=== PATIENT | female | born 1970 | race Caucasian/White ===

== ENCOUNTER → 2016-08-21 | Outpatient (CLI) | payer MEDICARE ==
--- NOTE | 2016-08-21 17:35 | US ---
EXAMINATION TYPE: US kidneys/renal and bladder DATE OF EXAM: 08/21/2016 5:12 PM COMPARISON: yes in PACS CLINICAL HISTORY: laceration of rt ureter during rectal prolapses surgery a couple months ago, sten p ut in rt kidney temporarily , stent removed 1 month ago EXAM MEASUREMENTS: Right Kidney: 10.6 x 3.8 x 4.3 cm Left Kidney: 10.4 x 4.1 x 4.3 cm Post Void Residual Volume: 13.9 ml ANATOMY: TECHNOLOGIST IMPRESSION: Right Kidney: prominent renal pelvis no hydro seen Left Kidney: no hydro seen Bladder: wnl rt complex mass 4.5 x 6.6 x 3.9 cm, origin undetermined on post void looks the same Bilateral Jets seen: left seen Normal Post Void Residual: yes There is no evidence for hydronephrosis at this point in time. No nephrolithiasis is seen. No elian s are identified. The urinary bladder is anechoic. Bilateral ureteral jets are seen. IMPRESSION: No renal stone or obstruction seen. There is a predominantly cystic mass in the pelvis on the right s sedrick of the urinary bladder. Margins are somewhat irregular with some thick internal septation. This c ould be arising from the right ovary or related to urinoma in this patient with a history of a previo us stent. We could not demonstrate a ureteral jet in the urinary bladder on the right side. Postvoid estimated bladder volume is 14 mL. Follow-up is recommended. Normal Values: Renal Length = 9 - 12cm Bladder Wall: < 0.3cm
== END | disposition home or self-care (01) ==
LOC: RADUSWWP 16:32
PROVIDERS: ATTEND Urology
DX: N94.89 Other specified conditions associated with female genital organs and menstrual cycle (principal); S37.13XA Laceration of ureter, initial encounter
CPT/HCPCS: 76770

== ENCOUNTER → 2016-09-03 | Outpatient (CLI) | payer MEDICARE ==
--- NOTE | 2016-09-05 10:40 | MM ---
Reason for exam: clinical finding. Last mammogram was performed 1 year and 10 months ago. History: Patient has history of other cancer at age 31 and is nulliparous. Indicated problem(s): lump or thickening in the left breast. Physical Findings: Nurse Summary: 1.5cm nodule in the left breast at 12 o'clock (nurse mm). MG Diagnostic Mammo w CAD PILI Bilateral CC and MLO view(s) were taken. Prior study comparison: October 19, 2014, right breast MG work up mamm w CAD RT. October 06, 2014, bilateral MG screening mammo w CAD. The breast tissue is extremely dense which could obscure a lesion on mammography. On left MLO view there is increased asymmetric parenchyma tissue. This finding is changed when compared with previous exams. These results were verbally communicated with the patient and result sheet given to the patient on 09/03/16. ASSESSMENT: Suspicious, BI-RAD 4 RECOMMENDATION: Surgical consultation and ultrasound core biopsy of the left breast. Called with mammographic findings and has scheduled an appointment for the patient with Dr. Borjas. PRELIMINARY REPORT CALLED AND FAXED TO DR. BORJAS ON 09/05/16 AT 300/TP.
--- NOTE | 2016-09-05 10:41 | USB ---
Reason for exam: clinical finding. History: Patient has history of other cancer at age 31 and is nulliparous. Indicated problem(s): lump or thickening in the left breast. US Breast LT Left breast ultrasound including all four quadrants, the retroareolar region and axilla demonstrates a 1.1 x 0.7 x 0.3cm oval, solid, hyperechoic lesion at 12 o'clock and a 0.8 x 0.8 x 0.4cm irregular, solid, hypoechoic lesion at 1 o'clock for which a biopsy is recommended. These results were verbally communicated with the patient and result sheet given to the patient on 09/03/16. ASSESSMENT: Suspicious, BI-RAD 4 RECOMMENDATION: Surgical consultation and ultrasound core biopsy of the left breast. Called with mammographic findings and has scheduled an appointment for the patient with Dr. Borjas. PRELIMINARY REPORT CALLED AND FAXED TO DR. BORJAS ON 09/05/16 AT 300/TP.
== END | disposition home or self-care (01) ==
LOC: RADMAMWWP 14:59
PROVIDERS: ATTEND Family Medicine
DX: N63 Unspecified lump in breast (principal)
CPT/HCPCS: 76641; G0204

== ENCOUNTER → 2016-09-14 | Day surgery (SDC) | payer MEDICARE ==
[~2016-09-14] MED LIST: ALPRAZolam 0.25 MG TAB ONE; BACITRACIN OINT 1 EACH PACKET TOPICAL ONE; LIDOCAINE 1% INJ 10MG/ML (20 ML MDV) ONE; LIDOCAINE 1%-EPI 1:100,000 20 ML VIAL ONE; SODIUM BICARB 4% 5 ML VIAL (0.48 MEQ/ML) ONE
--- NOTE | 2016-09-14 12:22 | USB ---
EXAMINATION TYPE: US biopsy breast VAD LT, MG diagnostic mammo LT wo CAD DATE OF EXAM: 09/14/2016 11:53 AM CLINICAL HISTORY: Abnormal Mammogram R92.8. Abnormal ultrasound. TECHNIQUE: Ultrasound guided core biopsy of left breast with clip placement follow-up two-view mammogram. COMPARISON: Prior mammogram and ultrasound September 03, 2016 and older studies FINDINGS: The procedure of ultrasound guided core biopsy was explained to the patient. Benefits, alternatives, and risks were discussed. An informed consent was then obtained. The patient was placed in supine positioning for imaging and for the procedure. Preprocedure imaging redemonstrated heterogeneous slightly lobulated hypoechoic 8 x 5 mm lesion 1:00 position in left breast zone B/C with some shadowing. The overlying skin was prepped and draped in usual sterile fashion. Lidocaine buffered with bicarbonate was used as anesthetic into the skin and subcutaneous tissue up to area of concern in the left breast. Lidocaine with epinephrine is used as anesthetic into the deeper tissue. Under ultrasound guidance, a 12-gauge vacuum assisted biopsy gun device was used to obtain 4 core samples. Following this, a biopsy clip was left in lesion. The patient tolerated the procedure well without any immediate complication. The patient was kept in the radiology department for short stay after the procedure and then discharged home in stable condition. Postprocedure mammogram shows successful deployment of the clip. IMPRESSION: Successful, uncomplicated ultrasound guided core biopsy of area of concern in the left breast, full pathology results to follow. Intermediate index of suspicion noted at time of procedure. Pathology Results: Benign BREAST, LEFT, CORE BIOPSY: FIBROCYSTIC CHANGES INCLUDING SCLEROSING ADENOSIS AND FIBROSIS. Recommendation Follow up ultrasound of the left breast in 6 months. OLAMIDE
== END ==
LOC: RADPROWWP 10:16 → EDSTATUS 11:30
PROVIDERS: ATTEND Surgery
DX: N60.12 Diffuse cystic mastopathy of left breast (principal); N60.22 Fibroadenosis of left breast; R92.8 Other abnormal and inconclusive findings on diagnostic imaging of breast
CPT/HCPCS: 88305; 19083; G0206; A4648; J2001

== ENCOUNTER → 2017-03-25 | Outpatient (CLI) | payer MEDICARE ==
--- NOTE | 2017-03-25 14:48 | USB ---
EXAMINATION TYPE: US breast complete LT DATE OF EXAM: 03/25/2017 COMPARISON: 09/03/2016 and exams dating back to 10/19/2014. CLINICAL HISTORY: R92.8 Abnormal Mammo. Complete left breast ultrasound was performed including the retroareolar and axillary regions. The pr eviously biopsied mass at the 1:00 position measuring 0.5 x 0.5 x 0.5 cm is not enlarged in compariso n to the prior exams and contains a biopsy marker clip. No new suspicious findings are appreciated. IMPRESSION: BI-RADS 2- Sonographic stability of the previously biopsied pathologically proven area of fibrocystic change including sclerosing adenosis and fibrosis. The patient may return to annual scre ening mammography.
--- NOTE | 2017-03-26 07:52 | MM ---
Reason for exam: follow-up at short interval from prior study. Last mammogram was performed 6 months ago. History: Patient has history of other cancer at age 31 and is nulliparous. Benign US biopsy breast VAD LT of the left breast, September 14, 2016. Physical Findings: Nurse did not find any significant physical abnormalities on exam. MG 3D Diag Mammo W/Cad PILI Bilateral CC and MLO view(s) were taken. Prior study comparison: September 14, 2016, left breast MG diagnostic mammo LT wo CAD. September 03, 2016, bilateral MG diagnostic mammo w CAD PILI. The breast tissue is extremely dense which could obscure a lesion on mammography. Finding #1: There are typically benign, stable round and oval masses in both breasts relating to waxing an waning cysts. Finding #2: There are few typically benign calcifications in both breasts. Left upper outer quadrant biopsy marker. No significant changes in finding since September 14, 2016 and September 03, 2016. These results were verbally communicated with the patient and result sheet given to the patient on 03/25/17. ASSESSMENT: Benign, BI-RAD 2 RECOMMENDATION: Routine screening mammogram of both breasts in 1 year.
== END | disposition home or self-care (01) ==
LOC: RADMAMWWP 13:30
PROVIDERS: ATTEND Surgery
DX: R92.8 Other abnormal and inconclusive findings on diagnostic imaging of breast (principal)
CPT/HCPCS: 76641; G0204; G0279

== ENCOUNTER → 2017-04-29 | Outpatient (CLI) | payer MEDICARE | END | disposition home or self-care (01) | LOC: LABWHC1 14:08 | PROVIDERS: ATTEND Psychiatry & Neurology Psychiatry | DX: F25.0 Schizoaffective disorder, bipolar type (principal) | CPT/HCPCS: 36415; 84146 ==

== ENCOUNTER → 2017-09-03 | Outpatient (CLI) | payer MEDICARE ==
[2017-09-03 13:58] LABS: T4, Free (Free Thyroxine) 0.94 ng/dL (0.78-2.19)
== END | disposition home or self-care (01) ==
LOC: LABWHC1 12:35
PROVIDERS: ATTEND Family Medicine
DX: R94.7 Abnormal results of other endocrine function studies (principal)
CPT/HCPCS: 36415; 84439; 84443

== ENCOUNTER → 2017-09-18 | Outpatient (CLI) | payer MEDICARE ==
--- NOTE | 2017-09-18 16:34 | US ---
EXAMINATION TYPE: US kidneys/renal and bladder DATE OF EXAM: 09/18/2017 COMPARISON: Prior renal ultrasound August 21, 2016 CLINICAL HISTORY: S37.19XD Injury of Ureter. LAST FALL DURING A RECTOCELE REPAIR SURGERY, RT URETER W CUT AND REQUIRED REPAIR. EXAM MEASUREMENTS: Right Kidney: 10.5 X 3.9 X 5.2 cm Left Kidney: 10.2 X 5.4 X 4.8 cm Right Kidney: WNL Left Kidney: WNL Bladder: WNL Bilateral Jets seen: BILATERAL JETS SEEN, THE RIGHT JET APPEARS TO COME FROM MORE LATERAL POSITION INCIDENTAL FINDINGS OF FIBROID UTERUS There is no evidence for hydronephrosis at this point in time. No nephrolithiasis is seen. No elian s are identified. The urinary bladder is anechoic. Bilateral ureteral jets are seen. IMPRESSION: No hydronephrosis is seen bilaterally on current study. Fibroid uterus incidentally noted.
== END | disposition home or self-care (01) ==
LOC: RADUSWWP 15:16
PROVIDERS: ATTEND Family Medicine
DX: D25.9 Leiomyoma of uterus, unspecified (principal); Z00.00 Encounter for general adult medical examination without abnormal findings
CPT/HCPCS: 76770

== ENCOUNTER → 2017-12-05 | Outpatient (CLI) | payer MEDICARE ==
[2017-12-05 10:33] LABS: Cholesterol 226 mg/dL (<200); Glucose 84 mg/dL (74-99)
[2017-12-05 11:06] LABS: HDL Cholesterol 45 mg/dL (40-60); LDL Cholesterol,Calculated 142 mg/dL (0-99); Triglycerides 194 mg/dL (<150)
[2017-12-05 18:51] LABS: Hemoglobin A1C 5.5 % (4.0-6.0)
== END | disposition home or self-care (01) ==
LOC: LABWHC1 09:57
PROVIDERS: ATTEND Psychiatry & Neurology Psychiatry
DX: F25.0 Schizoaffective disorder, bipolar type (principal)
CPT/HCPCS: 36415; 80061; 82947; 83036; 84146

== ENCOUNTER → 2018-01-15 | Outpatient (CLI) | payer MEDICARE ==
--- NOTE | 2018-01-15 14:17 | XR ---
EXAMINATION TYPE: XR wrist complete RT DATE OF EXAM: 01/15/2018 CLINICAL HISTORY: pain TECHNIQUE: Frontal, lateral and oblique images of the right wrist are obtained. COMPARISON: None. FINDINGS: There is no acute fracture/dislocation evident. The joint spaces appear within normal limits. The o verlying soft tissue appears unremarkable. IMPRESSION: There is no acute fracture or dislocation seen. ICD 10 NO FRACTURE, INITIAL EVALUATION
== END | disposition home or self-care (01) ==
LOC: RADXRMAIN 14:00
PROVIDERS: ATTEND Family Medicine
DX: M25.531 Pain in right wrist (principal)

== ENCOUNTER → 2018-04-15 | Outpatient (CLI) | payer MEDICARE ==
--- NOTE | 2018-04-17 14:15 | MM ---
Reason for exam: screening (asymptomatic). Last mammogram was performed 1 year and 1 month ago. History: Patient has history of other cancer at age 31 and is nulliparous. Benign US biopsy breast VAD LT of the left breast, September 14, 2016. Physical Findings: A clinical breast exam by your physician is recommended on an annual basis and results should be correlated with mammographic findings. MG 3D Screening Mammo W/Cad Bilateral CC and MLO view(s) were taken. Prior study comparison: March 25, 2017, bilateral MG 3d diag mammo w/cad PILI. September 14, 2016, left breast MG diagnostic mammo LT wo CAD. The breast tissue is heterogeneously dense. This may lower the sensitivity of mammography. Previous mammotome biopsy in the left breast. No significant changes when compared with prior studies. ASSESSMENT: Benign, BI-RAD 2 RECOMMENDATION: Routine screening mammogram of both breasts in 1 year.
== END | disposition home or self-care (01) ==
LOC: RADMAMWWP 11:24
PROVIDERS: ATTEND Family Medicine
DX: Z12.31 Encounter for screening mammogram for malignant neoplasm of breast (principal)
CPT/HCPCS: 77063; 77067

== ENCOUNTER → 2018-07-16 | Outpatient (CLI) | payer MEDICARE ==
[2018-07-16 15:56] LABS: LDL Cholesterol,Calculated 127.6 mg/dL (0.0-131.0); VLDL Calculation 29.4 mg/dL (5.00-40.00)
[2018-07-16 17:41] LABS: Hemoglobin A1C 5.6 % (4.0-6.0)
== END | disposition home or self-care (01) ==
LOC: LABWHC1 10:08
PROVIDERS: ATTEND Psychiatry & Neurology Psychiatry
DX: F25.0 Schizoaffective disorder, bipolar type (principal)
CPT/HCPCS: 36415; 80061; 82947; 83036; 84146

== ENCOUNTER → 2018-09-08 | Outpatient (CLI) | payer MEDICARE ==
[2018-09-08 12:49] LABS: Basophils # (A) 0.1 k/uL (0-0.2); Basophils % (A) 1 %; Eosinophils # (A) 0.2 k/uL (0-0.7); Eosinophils % (A) 3 %; HCT 41.3 % (34.0-46.0); HGB 13.3 gm/dL (11.4-16.0); Lymphocytes # (A) 1.7 k/uL (1.0-4.8); Lymphocytes % (A) 26 %; MCH 28.6 pg (25.0-35.0); MCHC 32.1 g/dL (31.0-37.0); Mean Platelet Volume 7.1; Monocytes # (A) 0.3 k/uL (0-1.0); Monocytes % (A) 5 %; Neutrophils % (A) 61 %; Platelet Count 325 k/uL (150-450); RBC 4.64 m/uL (3.80-5.40); WBC 6.5 k/uL (3.8-10.6)
[2018-09-08 17:56] LABS: Albumin 4.4 g/dL (3.80-4.90); Calcium 9.6 mg/dL (8.7-10.3); Globulin 2.2 g/dL (1.6-3.3); LDL Cholesterol,Calculated 106.8 mg/dL (0.0-131.0); Magnesium 1.6 mg/dL (1.5-2.4); Potassium 4.3 mmol/L (3.5-5.5); Total Bilirubin 0.3 mg/dL (0.3-1.2); Total Protein 6.6 g/dL (6.2-8.2); VLDL Calculation 64.2 mg/dL (5.00-40.00)
== END | disposition home or self-care (01) ==
LOC: LABWHC1 10:30
PROVIDERS: ATTEND Family Medicine
DX: D72.829 Elevated white blood cell count, unspecified (principal); R94.7 Abnormal results of other endocrine function studies; Z13.29 Encounter for screening for other suspected endocrine disorder; Z13.6 Encounter for screening for cardiovascular disorders
CPT/HCPCS: 36415; 80053; 80061; 83735; 84146; 84443; 85025

== ENCOUNTER → 2018-11-19 | Outpatient (CLI) | payer MEDICARE ==
--- NOTE | 2018-11-19 14:06 | XR ---
EXAMINATION TYPE: XR foot complete LT DATE OF EXAM: 11/19/2018 CLINICAL HISTORY: Pain for one month in the fourth toe TECHNIQUE: Frontal, lateral, and oblique images of the left foot are obtained. COMPARISON: None FINDINGS: There is no acute fracture/dislocation evident in the left foot. Some flexion in distal fo urth and fifth toes is present. Moderate soft tissue swelling over fourth toe is seen. IMPRESSION: Moderate diffuse soft tissue swelling fourth toe without fracture or suspicious osseous l esion.
== END | disposition home or self-care (01) ==
LOC: RADXRMAIN 13:32
PROVIDERS: ATTEND Family Medicine
DX: M79.89 Other specified soft tissue disorders (principal)

== ENCOUNTER → 2019-03-03 | Outpatient (CLI) | payer MEDICARE ==
[2019-03-03 16:44] LABS: Hemoglobin A1C 5.8 % (4.0-6.0)
== END | disposition home or self-care (01) ==
LOC: LABWHC1 09:57
PROVIDERS: ATTEND Psychiatry & Neurology Psychiatry
DX: F25.0 Schizoaffective disorder, bipolar type (principal)
CPT/HCPCS: 36415; 80061; 82947; 83036; 84450; 84460

== ENCOUNTER 2019-04-22 08:09 | Day surgery (SDC) | payer MEDICARE ==
[2019-04-20 11:13] VITALS: BMI 31.4
[~2019-04-22 08:09] MED LIST changes: -ALPRAZolam 0.25 MG TAB ONE; -BACITRACIN OINT 1 EACH PACKET TOPICAL ONE; +LACTATED RINGERS 1,000 ML IV SCH; +LIDOCAINE 1% 20 ML VIAL (10MG/ML) FOR IV START INTRADERMA PRN; -LIDOCAINE 1% INJ 10MG/ML (20 ML MDV) ONE; -LIDOCAINE 1%-EPI 1:100,000 20 ML VIAL ONE; -SODIUM BICARB 4% 5 ML VIAL (0.48 MEQ/ML) ONE
[2019-04-22 08:41] VITALS: PULSE 94; RESP 16; TEMP 97
[2019-04-22 08:48] LABS: Glucose,Whole Blood 94 mg/dL (75-99)
[2019-04-22] MEDS ORDERED: PROPOFOL 10 MG/ML 20 ML VIAL IV ONE (09:07)
--- NOTE | 2019-04-22 09:10 | P.GSHP ---
History of Present Illness H&P Date: 04/22/19 Chief Complaint: GERD This a 48-year-old female referred from Yelena Ford. Patient had issues with GERD. Patient resents today for EGD. Past Medical History Past Medical History: COPD, GERD/Reflux, Skin Disorder Additional Past Medical History / Comment(s): hiatal hernia, PSORIATIC ARTHRITIS, psoriasis, hypoglycemia, rectal prolapse History of Any Multi-Drug Resistant Organisms: None Reported Past Surgical History: Hernia Repair, Tonsillectomy Additional Past Surgical History / Comment(s): excision of moles, urethral stent. RECTAL PROLAPSE SX. COLONOSCOPY Past Anesthesia/Blood Transfusion Reactions: No Reported Reaction Smoking Status: Former smoker - Past Family History Mother Family Medical History: No Reported History Medications and Allergies Home Medications Medication Instructions Recorded Confirmed Type Multivitamins, Thera [Multivitamin 1 tab PO DAILY 07/18/17 04/22/19 History (formulary)] Venlafaxine HCl ER [Effexor XR] 75 mg PO DAILY #14 cap.er.24h 07/23/17 04/22/19 Rx Ziprasidone [Geodon] 40 mg PO 0800,1900 #28 cap 07/23/17 04/22/19 Rx Omeprazole [PriLOSEC] 20 mg PO AC-BRKFST 04/20/19 04/22/19 History Secukinumab [Cosentyx Pen] 150 mg SQ Q120D 04/20/19 04/22/19 History Allergies Allergy/AdvReac Type Severity Reaction Status Date / Time No Known Allergies Allergy Verified 04/22/19 08:34 Surgical - Exam Vital Signs Temp Pulse Resp BP Pulse Ox 97 F L 94 16 110/74 94 L 04/22/19 08:40 04/22/19 08:40 04/22/19 08:40 04/22/19 08:40 04/22/19 08:40 - General well developed, well nourished, no distress - Eyes PERRL - ENT normal pinna - Neck no masses - Respiratory normal expansion, normal respiratory effort - Cardiovascular Rhythm: regular - Abdomen Abdomen: soft, non tender Assessment and Plan Assessment: GERD. We'll perform EGD.
--- NOTE | 2019-04-22 09:19 | P.OP ---
Date of Procedure: 04/22/19 Preoperative Diagnosis: GERD Postoperative Diagnosis: Large hiatal hernia Severe Esophagitis Procedure(s) Performed: EGD Anesthesia: MAC Surgeon: Tyrel Tadeo Pathology: other (Antrum, esophagus) Condition: stable Disposition: PACU Description of Procedure: The patient's placed on the endoscopy table in the lateral position. She received IV sedation. The gastroscope placed oropharynx passed in the esophagus and into the stomach. Scope was then placed through the pylorus. The first second portion of the duodenum appeared normal. Scope summer back the antrum this was mildly inflamed. A biopsies was performed. The scope was then retroflexed and the remainder of the stomach appeared normal. The patient had a large hiatal hernia. The GE junction was at 34 cm. The distal esophagus appeared inflamed. There was severe esophagitis. Linear erosions were visualized. A biopsies performed. The proximal esophagus appeared normal. Scope withdrawn for patient.
[2019-04-22 09:32] VITALS: BP 122/70
== END 2019-04-22 09:55 | disposition home or self-care (01) ==
LOC: ORWHC2ENDO 08:09
PROVIDERS: ATTEND Surgery
DX: K20.0 Eosinophilic esophagitis (principal); K29.50 Unspecified chronic gastritis without bleeding; K44.9 Diaphragmatic hernia without obstruction or gangrene; J44.9 Chronic obstructive pulmonary disease, unspecified; Z96.0 Presence of urogenital implants; L40.50 Arthropathic psoriasis, unspecified; L40.9 Psoriasis, unspecified; E16.2 Hypoglycemia, unspecified; Z87.891 Personal history of nicotine dependence; F41.9 Anxiety disorder, unspecified; F31.9 Bipolar disorder, unspecified; F20.9 Schizophrenia, unspecified; Z79.899 Other long term (current) drug therapy
CPT/HCPCS: 81025; 88305; 43239; J2704

== ENCOUNTER → 2019-04-23 | Outpatient (CLI) | payer MEDICARE ==
--- NOTE | 2019-04-24 14:11 | MM ---
Reason for exam: screening (asymptomatic). Last mammogram was performed 1 year ago. History: Patient has history of other cancer at age 31 and is nulliparous. Benign US biopsy breast VAD LT of the left breast, September 14, 2016. Took hormonal contraceptives for 12 years. Physical Findings: A clinical breast exam by your physician is recommended on an annual basis and results should be correlated with mammographic findings. MG 3D Screening Mammo W/Cad Bilateral CC and MLO view(s) were taken. Prior study comparison: April 15, 2018, bilateral MG 3d screening mammo w/cad. March 25, 2017, bilateral MG 3d diag mammo w/cad PILI. The breast tissue is heterogeneously dense. This may lower the sensitivity of mammography. No suspicious abnormality. Left biopsy marker noted. No significant changes when compared with prior studies. ASSESSMENT: Negative, BI-RAD 1 RECOMMENDATION: Routine screening mammogram of both breasts in 1 year.
== END | disposition home or self-care (01) ==
LOC: RADMAMWWP 12:42
PROVIDERS: ATTEND Family Medicine
DX: Z12.31 Encounter for screening mammogram for malignant neoplasm of breast (principal)
CPT/HCPCS: 77063; 77067

== ENCOUNTER → 2019-04-30 | Outpatient (CLI) | payer MEDICARE | END | disposition home or self-care (01) | LOC: LABPAT 15:12 | PROVIDERS: ATTEND Surgery | DX: Z01.812 Encounter for preprocedural laboratory examination (principal); K21.9 Gastro-esophageal reflux disease without esophagitis | CPT/HCPCS: 36415; 86850; 86900; 86901 ==

== ENCOUNTER 2019-05-04 08:25 | Day surgery (SDC) | payer MEDICARE ==
[2019-05-01 09:21] VITALS: BMI 31.6
[~2019-05-04 08:25] MED LIST changes: +DEXAMETHASONE SOD PHOSPHATE 10 MG/ML 1 ML VIAL IV ONE; +HEPARIN SODIUM,PORCINE 5,000 UNIT/ML 1 ML VIAL SQ ONE; -LACTATED RINGERS 1,000 ML IV SCH; +MIDAZOLAM 2 MG/2 ML VIAL IV PRN
[2019-05-04] MEDS: LACTATED RINGERS 1,000 ML IV SCH ×2 (09:00→18:51)
[2019-05-04] MEDS ORDERED: DEXAMETHASONE SOD PHOSPHATE 10 MG/ML 1 ML VIAL IV ONE (09:04)
[2019-05-04] MEDS ORDERED: ONDANSETRON 4 MG/2 ML VIAL IVP ONE (09:04)
--- NOTE | 2019-05-04 09:46 | P.GSHP ---
History of Present Illness H&P Date: 05/04/19 Chief Complaint: GERD This a 48-year-old female referred from Dr. Ford.The patient has had long- standing problems with reflux esophagitis. The patient underwent recent EGD is found have evidence of esophagitis. Patient has been well informed on the proc edure of laparoscopic Barrera fundoplication. The patient is aware the risk of the conversion to the open procedure, risk of injury to the stomach, liver and spleen. The patient is also a risk of recurrent GERD and dysphagia symptoms. The patient understands there is a postoperative diet of full liquids for 2 weeks after surgery. Past Medical History Past Medical History: COPD, GERD/Reflux, Skin Disorder Additional Past Medical History / Comment(s): hiatal hernia, PSORIATIC ARTHRITIS, psoriasis, hypoglycemia, hx rectal prolapse, "fibroid uterus", elevated liver enzymes, History of Any Multi-Drug Resistant Organisms: None Reported Past Surgical History: Breast Surgery, Tonsillectomy Additional Past Surgical History / Comment(s): excision of moles, rectocele repair(ureter severed during surgery and ureter stent placed/later removed), left breast biopsy, EGD, colonoscopy Past Anesthesia/Blood Transfusion Reactions: No Reported Reaction, Unable to Obtain Additional Past Anesthesia/Blood Transfusion Reaction / Comment(s): adopted Smoking Status: Former smoker - Past Family History Mother Family Medical History: Unable to Obtain Additional Family Medical History / Comment(s): adopted Medications and Allergies Home Medications Medication Instructions Recorded Confirmed Type Multivitamins, Thera [Multivitamin 1 tab PO DAILY 07/18/17 05/01/19 History (formulary)] Venlafaxine HCl ER [Effexor XR] 75 mg PO DAILY #14 cap.er.24h 07/23/17 05/01/19 Rx Omeprazole [PriLOSEC] 20 mg PO AC-BRKFST 04/20/19 05/01/19 History Secukinumab [Cosentyx Pen] 150 mg SQ QMONTH 04/20/19 05/04/19 History Calcium Carbonate 750 mg PO DIRECTED PRN 05/01/19 05/04/19 History Ibuprofen 600 mg PO DIRECTED PRN 05/01/19 05/01/19 History Ziprasidone [Geodon] 40 mg PO BID-W/MEALS 05/01/19 05/01/19 History Allergies Allergy/AdvReac Type Severity Reaction Status Date / Time No Known Allergies Allergy Verified 05/01/19 09:06 Surgical - Exam Vital Signs Temp Pulse Resp BP Pulse Ox 97.5 F L 78 18 107/76 94 L 05/04/19 08:41 05/04/19 08:41 05/04/19 08:41 05/04/19 08:41 05/04/19 08:41 - General well developed, well nourished, no distress - Eyes PERRL - ENT normal pinna - Neck no masses - Respiratory normal expansion - Cardiovascular Rhythm: regular - Abdomen Abdomen: soft, non tender Assessment and Plan Assessment: GERD. We'll perform laparoscopic Barrera fundal plication.
[2019-05-04] MEDS ORDERED: MIDAZOLAM 2 MG/2 ML VIAL ONE (10:01)
[2019-05-04] MEDS ORDERED: GLYCOPYRROLATE 0.2 MG/ML 2 ML VIAL ONE (10:01)
[2019-05-04] MEDS ORDERED: KETAMINE 10 MG/ML 20 ML VIAL ONE (10:01)
[2019-05-04] MEDS ORDERED: fentaNYL (PF) 50 MCG/ML 2 ML AMP ONE (10:01)
[2019-05-04] MEDS ORDERED: NEOSTIGMINE 1 MG/ML 10 ML VIAL ONE (10:01)
[2019-05-04] MEDS ORDERED: LIDOCAINE 1% INJ 10MG/ML (20 ML MDV) ONE (10:01)
[2019-05-04] MEDS ORDERED: SUCCINYLCHOLINE CHLORIDE 100 MG/5 ML SYR IV ONE (10:01)
[2019-05-04] MEDS ORDERED: ROCURONIUM BROMIDE 10 MG/ML 10 ML VIAL IV ONE (10:01)
[2019-05-04] MEDS ORDERED: PROPOFOL 10 MG/ML 20 ML VIAL IV ONE (10:01)
[2019-05-04] MEDS ORDERED: BUPIVACAINE (PF) 0.5% 30 ML VIAL SQ ONE (10:27)
[2019-05-04] MEDS ORDERED: LACTATED RINGERS 1,000 ML IV ONE (10:33)
--- NOTE | 2019-05-04 11:14 | P.OP ---
Date of Procedure: 05/04/19 Preoperative Diagnosis: GERD Postoperative Diagnosis: GERD Procedure(s) Performed: Laparoscopic Barrera fundoplication Anesthesia: ENA Surgeon: Tyrel Tadeo Pathology: none sent Condition: stable Disposition: PACU Description of Procedure: The patient was placed on the operating table in the supine position. The patient received general anesthesia. And was placed in dorsal lithotomy position. The patient was prepped and draped in the usual sterile fashion. The skin incision sites were anesthetized with 1% local Xylocaine. The skin was incised in the left periumbilical area and then using a blade less 5 mm trocar under direct visualization panel cavity was entered. After adequate ins ufflation the laparoscope was then placed into the peritoneal cavity. Next a 5 mm trochars placed in the right epigastric position. Another 5 millimeter trocar the right lateral position. Another 5 millimeter trocar in the left lateral position a 5 mm trocar is placed in the left epigastric position. And then the initial 5 mm trocar was exchanged for a 10 mm trocar. The left lateral lobe liver was retracted. The hernia was seen. The crural defect was then dissected using the Harmonic scissors device. A 360 crural dissection was performed the esophagus stomach was reduced back into the peritoneal Cavity. The crural defect was then closed using 2-0 Ethibond suture. Next the fundus of the stomach was mobilized using the [employer] [place] scissors device. and then a 58- [place] bougie dilator was placed oropharynx passed into the esophagus and stomach the fundal plication wrap was then performed by grasping the fundus posteriorly and bringing it around the esophagus and stomach fundoplication was then performed using 2-0 Ethibond suture. Care was taken that the fundal location rested over top of the intra-abdominal esophagus. There was no injury seen to the stomach or esophagus. The dilator was then withdrawn. The abdomen was irrigated there is no bleeding seen. The trochars were then withdrawn and then skin incision sites were closed using 3-0 Monocryl suture Steri-Strips are applied. Patient thought procedure well and sent to recovery room in stable condition.
[2019-05-04] MEDS ORDERED: ONDANSETRON 4 MG/2 ML VIAL IVP PRN (11:15)
[2019-05-04] MEDS: fentaNYL (PF) 50 MCG/ML 2 ML AMP IV PRN ×4 (11:20→11:49)
[2019-05-04] MEDS ORDERED: diphenhydrAMINE 50 MG/ML 1 ML VIAL IVP ONE (11:23)
[2019-05-04] MEDS ORDERED: CALCIUM CARBONATE 500 MG CHEWABLE PO PRN (13:46)
[2019-05-04] MEDS: ZIPRASIDONE 40 MG CAP PO SCH (17:20)
[2019-05-04] MEDS: HYDROmorphone 1 MG/ML 1 ML SYRINGE IVP PRN (18:04)
--- NOTE | 2019-05-04 19:24 | FL ---
SINGLE CONTRAST ESOPHAGRAM: CLINICAL HISTORY: 48 year-old female rule out leak/obstruction status post Barrera fundoplication TECHNIQUE: Single contrast exam performed with 50 ml Isovue-370 contrast. Total fluoroscopy time: 1 minute 17 seconds. Total images: 25. FINDINGS: The patient swallowed oral contrast without difficulty or delay. Esophageal peristalsis and motility are within normal limits. There are postsurgical changes of Barrera fundoplication demonstrated with a mild intermittent delay in passage of contrast into the stomach. There is no evidence of contrast extravasation to suggest leak. No postsurgical free air is seen. IMPRESSION: No evidence of leak status post Barrera plication. There is mild delay/obstruction at the surgical sit e likely secondary to postoperative swelling.
[2019-05-04] MEDS: D5-0.45% NACL WITH KCL 20MEQ/L 1,000 ML IV SCH (23:46)
--- NOTE | 2019-05-04 23:54 | P.CONS ---
History of Present Illness - Reason for Consult Consult date: 05/04/19 Medical management - Chief Complaint Laparoscopic Barrera fundoplication - History of Present Illness Patient is a 48-year-old female with a known history of COPD, psoriatic arthritis, hyperlipidemia and previous history of drug abuse and underwent rehab program was admitted to hospital for elective hiatal hernia repair. Patient recently had EGD which showed esophagitis. Currently patient is status post Barrera fundoplication. Otherwise patient denied any complaints of chest pain or shortness of breath. No nausea vomiting. Abdominal pain is controlled with medications. No headache or dizziness or lightheadedness. No chest pain or shortness of breath. Postoperatively patient was hypoxic but is currently saturating well on room air. Review of Systems Constitutional: Patient denies any fever or chills . No generalized weakness or weight loss. Abdomen: Patient denied nausea vomiting and diarrhea and abdominal pain. Cardiovascular: Patient denies any chest pain or short of breath no palpitations. Respiratory: patient denied any cough is from production. No shortness of breath Neurologic: Patient denied any numbness or tingling headache. Musculoskeletal: Patient denies any complaints of joint swelling or deformity. Skin: Negative Psychiatric: Negative Endocrine: No heat or cold intolerance. No recent weight gain. Genitourinary: No dysuria or hematuria. All other 14 point ROS negative except the above Past Medical History Past Medical History: COPD, GERD/Reflux, Skin Disorder Additional Past Medical History / Comment(s): hiatal hernia, PSORIATIC ARTHRITIS, psoriasis, hypoglycemia, hx rectal prolapse, "fibroid uterus", elevated liver enzymes, History of Any Multi-Drug Resistant Organisms: None Reported Past Surgical History: Breast Surgery, Tonsillectomy Additional Past Surgical History / Comment(s): excision of moles, rectocele repair(ureter severed during surgery and ureter stent placed/later removed), left breast biopsy, EGD, colonoscopy Past Anesthesia/Blood Transfusion Reactions: No Reported Reaction, Unable to Obtain Additional Past Anesthesia/Blood Transfusion Reaction / Comm: adopted Past Psychological History: Anxiety, Bipolar, Depression, Schizoaffective Disorder, Schizophrenia Additional Psychological History / Comment(s): UNDER CONTROL AT THIS TIME Smoking Status: Former smoker Past Alcohol Use History: None Reported Additional Past Alcohol Use History / Comment(s): smoked < 1 PPD for 29 yrs, QUIT-05/2016. previous ETOH ABUSE Past Drug Use History: None Reported Additional Drug Use History / Comment(s): HX SUBTANCE ABUSE-NONE SINCE 10/2016 - Past Family History Mother Family Medical History: Unable to Obtain Additional Family Medical History / Comment(s): adopted Medications and Allergies Home Medications Medication Instructions Recorded Confirmed Type Multivitamins, Thera [Multivitamin 1 tab PO DAILY 07/18/17 05/01/19 History (formulary)] Venlafaxine HCl ER [Effexor XR] 75 mg PO DAILY #14 cap.er.24h 07/23/17 05/01/19 Rx Omeprazole [PriLOSEC] 20 mg PO AC-BRKFST 04/20/19 05/01/19 History Secukinumab [Cosentyx Pen] 150 mg SQ QMONTH 04/20/19 05/04/19 History Calcium Carbonate 750 mg PO DIRECTED PRN 05/01/19 05/04/19 History Ibuprofen 600 mg PO DIRECTED PRN 05/01/19 05/01/19 History Ziprasidone [Geodon] 40 mg PO BID-W/MEALS 05/01/19 05/01/19 History Allergies Allergy/AdvReac Type Severity Reaction Status Date / Time No Known Allergies Allergy Verified 05/01/19 09:06 Physical Exam Vitals: Vital Signs Temp Pulse Resp BP Pulse Ox 05/04/19 13:55 97.9 F 63 16 120/81 91 L 05/04/19 12:56 70 16 114/80 97 05/04/19 12:32 65 16 118/73 96 05/04/19 12:03 72 16 102/67 97 05/04/19 11:47 76 16 98/66 98 05/04/19 11:34 72 16 110/77 16 L 05/04/19 11:15 81 16 133/80 100 05/04/19 11:09 98.8 F 105 H 16 121/69 95 05/04/19 08:41 97.5 F L 78 18 107/76 94 L Intake and Output 05/04/19 05/04/19 05/04/19 06:59 14:59 22:59 Intake Total 1775 Output Total 10 Balance 1765 Intake: IV 1650 Intake, IV Titration 125 Amount D5-0.45% NaCl with KCl 125 20Meq/l 1,000 ml @ 125 mls/hr IV .Q8H [facility] Rx#: [id number] Output: Estimated Blood Loss 10 Other: Weight 86.183 kg PHYSICAL EXAMINATION: Patient is lying in the bed comfortably, no acute distress, awake alert and oriented.. HEENT: Normocephalic. Neck is supple. Pupils reactive. Nostrils clear. Oral cavity is moist. Ears reveal no drainage. Neck reveals no JVD, carotid bruits, or thyromegaly. CHEST EXAMINATION: Trachea is central. Symmetrical expansion. Bibasilar diminished air entry. Lung jung clear to auscultation and percussion. CARDIAC: Normal S1, S2 with no gallops. No murmurs ABDOMEN: Soft. Bowel sounds sluggish. Surgical sites intact.. No organomegaly. No abdominal bruits. Extremities: reveal no edema. No clubbing or cyanosis Neurologically awake, alert, oriented x3 with well-coordinated movements. No focal deficits noted Skin: No rash or skin lesions. Psychiatric: Coperative. Nonsuicidal Musculoskeletal: No joint swelling or deformity. Normal range of motion. Assessment and Plan Assessment: Status post Barrera fundoplication due to symptomatic hiatal hernia. Postoperative day 0 GERD Psoriasis and psoriatic arthritis COPD stable History of smoking History of rectal prolapse status post repair DVT prophylaxis Obesity with BMI 31.6 Plan: Patient be continued on IV hydration and pain management, bowel regimen and incentive spirometry. Encourage ambulation and DVT prophylaxis. Continue the home medications and follow up closely. Further recommendations based on the clinical course. Thank you for your consult. Time with Patient: Greater than 30
[2019-05-05] MEDS: D5-0.45% NACL WITH KCL 20MEQ/L 1,000 ML IV SCH ×2 (01:30→05:08)
[2019-05-05] MEDS: HYDROmorphone 1 MG/ML 1 ML SYRINGE IVP PRN (01:31)
[2019-05-05 03:19] VITALS: PULSE 71; RESP 18
[2019-05-05 07:26] LABS: Basophils % (A) 0 %; Eosinophils # (A) 0.1 k/uL (0-0.7); Eosinophils % (A) 1 %; HCT 36.4 % (34.0-46.0); HGB 12.4 gm/dL (11.4-16.0); Lymphocytes # (A) 1.9 k/uL (1.0-4.8); Lymphocytes % (A) 15 %; MCH 29.6 pg (25.0-35.0); Mean Platelet Volume 7.2; Monocytes # (A) 0.6 k/uL (0-1.0); Monocytes % (A) 5 %; Neutrophils # (A) 10.2 k/uL (1.3-7.7); Neutrophils % (A) 78 %; Platelet Count 290 k/uL (150-450); RBC 4.19 m/uL (3.80-5.40); RDW 13.1 % (11.5-15.5); WBC 13.1 k/uL (3.8-10.6)
[2019-05-05] MEDS ORDERED: PANTOPRAZOLE 40 MG TABLET PO SCH (07:30)
[2019-05-05 07:43] LABS: African American GFR (CKD) >90 (>60 ml/min/1.73 sqM); Anion Gap 7 mmol/L; Blood Urea Nitrogen 11 mg/dL (7-17); Calcium 9.4 mg/dL (8.4-10.2); Carbon Dioxide 27 mmol/L (22-30); Chloride 103 mmol/L (98-107); Glucose 115 mg/dL (74-99); Potassium 4.5 mmol/L (3.5-5.1); Sodium 137 mmol/L (137-145)
[2019-05-05] MEDS: ZIPRASIDONE 40 MG CAP PO SCH (08:01)
[2019-05-05 08:39] VITALS: BP 112/75; TEMP 98.1
[2019-05-05] MEDS ORDERED: MULTIVITAMINS, THERA 1 EACH TAB PO SCH (09:00)
[2019-05-05] MEDS ORDERED: VENLAFAXINE HCL ER 75 MG CAP PO SCH (09:00)
[2019-05-05] MEDS: LACTATED RINGERS 1,000 ML IV SCH (10:01)
--- NOTE | 2019-05-05 12:51 | P.DS ---
Providers Expected date of discharge: 05/05/19 Attending physician: Tyrel Tadeo Consults: 05/04/19 11:15 Consult Physician Routine Consulting Provider: Regis Quan Consult Reason/Comments: Medical management Do you want consulting provider notified?: Yes Primary care physician: Yelena Borjas Hospital Course: 48-year-old female who underwent laparoscopic Barrera fundoplication. Patient is doing well postoperatively without any makeup occasions. Esophagram completed postoperatively negative for leak or obstruction. She is tolerating clear liquid diet. Pain is controlled on oral medications. She is stable for discharge home. Please see EMR for the hospital course details. Patient has a history of substance abuse and is requesting Tylenol only at the time of discharge. Discharge diagnosis 1. GERD, status post laparoscopic Barrera fundoplication Nurse practitioner note has been reviewed by physician. Signing provider agrees with the documented findings, assessment, and plan of care. Plan - Discharge Summary Discharge Rx Participant: Yes New Discharge Prescriptions: New Acetaminophen Tab [Tylenol Tab] 650 mg PO Q4H PRN #30 tablet PRN Reason: Pain Discontinued Omeprazole [PriLOSEC] 20 mg PO AC-BRKFST No Action Multivitamins, Thera [Multivitamin (formulary)] 1 tab PO DAILY Venlafaxine HCl ER [Effexor XR] 75 mg PO DAILY #14 cap.er.24h Secukinumab [Cosentyx Pen] 150 mg SQ QMONTH Ziprasidone [Geodon] 40 mg PO BID-W/MEALS Calcium Carbonate 750 mg PO DIRECTED PRN PRN Reason: acid reflux Ibuprofen 600 mg PO DIRECTED PRN PRN Reason: Pain Discharge Medication List Multivitamins, Thera [Multivitamin (formulary)] 1 tab PO DAILY 07/18/17 [History] Venlafaxine HCl ER [Effexor XR] 75 mg PO DAILY #14 cap.er.24h 07/23/17 [Rx] Secukinumab [Cosentyx Pen] 150 mg SQ QMONTH 04/20/19 [History] Calcium Carbonate 750 mg PO DIRECTED PRN 05/01/19 [History] Ibuprofen 600 mg PO DIRECTED PRN 05/01/19 [History] Ziprasidone [Geodon] 40 mg PO BID-W/MEALS 05/01/19 [History] Acetaminophen Tab [Tylenol Tab] 650 mg PO Q4H PRN #30 tablet 05/05/19 [Rx] Follow up Appointment(s)/Referral(s): Tyrel Tadeo MD [STAFF PHYSICIAN] - 05/19/19 1:20 pm Patient Instructions/Handouts: Fundoplication in Adults (DC) Activity/Diet/Wound Care/Special Instructions: Full liquid diet for 2 weeks. No straws or carbonated beverages No lifting over 10 pounds You may shower. No soaking or tub baths Very light activity until you are reevaluated at your follow up appointment with your surgeon
== END 2019-05-05 12:50 | disposition home or self-care (01) ==
LOC: OR 08:25 → 4SSUR 11:01 → OR 05-05 12:50
PROVIDERS: ATTEND Surgery
DX: K21.0 Gastro-esophageal reflux disease with esophagitis (principal); K44.9 Diaphragmatic hernia without obstruction or gangrene; J44.9 Chronic obstructive pulmonary disease, unspecified; L40.50 Arthropathic psoriasis, unspecified; L40.9 Psoriasis, unspecified; E78.5 Hyperlipidemia, unspecified; F41.9 Anxiety disorder, unspecified; F31.9 Bipolar disorder, unspecified; F20.9 Schizophrenia, unspecified; E66.9 Obesity, unspecified; Z79.899 Other long term (current) drug therapy; Z87.891 Personal history of nicotine dependence; Z68.31 Body mass index [BMI] 31.0-31.9, adult; Z90.89 Acquired absence of other organs; Z98.890 Other specified postprocedural states; Z87.2 Personal history of diseases of the skin and subcutaneous tissue
CPT/HCPCS: 86900; 86901; 80048; 85025; 86850; 74210; 36415; 43280; J2250; J1200; J1644; J1100; J2710; J0690; J2405; J2001; J3010; J1170 ×2; J0330; J2704; Q9967

== ENCOUNTER → 2019-08-03 | Outpatient (CLI) | payer MEDICARE ==
--- NOTE | 2019-08-03 12:18 | NM ---
EXAMINATION TYPE: NM hepatobiliary w EF DATE OF EXAM: 08/03/2019 COMPARISON: NONE HISTORY: 48-year-old female with chronic cholecystitis, epigastric and abdominal pain, nausea and vom iting. TECHNIQUE: After the intravenous administration of 4.95 mCi Tc 99m Mebrofenin hepatobiliary scintigra phy is performed. Immediate images post injection. FINDINGS: There is satisfactory initial accumulation of tracer by the liver. The gallbladder is visualized on the 90 minute delayed image. The small bowel activity is noted within 18 minutes. After 90 minutes, 1 .6 mcg CCK is injected and gallbladder ejection fraction is measured at 0 %. IMPRESSION: Delayed gallbladder filling and a 0% gallbladder ejection fraction. Differential considerations inclu de chronic cholecystitis and biliary dyskinesia.
== END | disposition home or self-care (01) ==
LOC: RADNMMAIN 06:52
PROVIDERS: ATTEND Surgery
DX: K81.1 Chronic cholecystitis (principal); K82.8 Other specified diseases of gallbladder
CPT/HCPCS: 78226; A9537; J2805

== ENCOUNTER → 2019-08-06 | Outpatient (CLI) | payer MEDICARE ==
--- NOTE | 2019-08-06 09:01 | FL ---
EXAMINATION: Cervical and Thoracic Esophagram DATE OF EXAM: 08/06/2019 CLINICAL INDICATION: 48 year-old female with GERD. Patient reports numbness and fundoplication perfor med 05/04/2019 with recurrent symptoms of acid reflux, vomiting, chest pain in June. COMPARISON: 05/04/2019 Total Fluoroscopy Time: 2 minutes 4 seconds Total images: 53 FINDINGS: The swallowing mechanism is normal and hypopharyngeal anatomy is preserved. There is some anterior e ndplate spondylosis in the lower cervical spine causing mild impression onto the posterior wall of th e hypopharynx. The thoracic portion has a normal course and caliber and normal motility. The mucosa is normal and no persistent filling defect is encountered. However, there is a small to moderate sized hiatal hernia demonstrated. Valsalva and positional maneu vers results in moderate to severe gastroesophageal reflux. IMPRESSION: 1. Recurrent small to moderate-sized hiatal hernia. 2. Moderate to severe gastroesophageal reflux is elicited during the course of the exam.
== END | disposition home or self-care (01) ==
LOC: RADFLMAIN 08:00
PROVIDERS: ATTEND Surgery
DX: K21.9 Gastro-esophageal reflux disease without esophagitis (principal); K44.9 Diaphragmatic hernia without obstruction or gangrene
CPT/HCPCS: 74220

== ENCOUNTER 2019-08-31 06:23 | Day surgery (SDC) | payer MEDICARE ==
[2019-08-28 09:56] VITALS: BMI 28.1
[~2019-08-31 06:23] MED LIST changes: +HYDROmorphone 0.5 MG/0.5 ML SYRINGE IVP PRN; +LACTATED RINGERS 1,000 ML IV SCH; -MIDAZOLAM 2 MG/2 ML VIAL IV PRN; +ONDANSETRON 4 MG/2 ML VIAL IVP ONE
[2019-08-31 06:54] VITALS: TEMP 98.2
[2019-08-31] MEDS ORDERED: NEOSTIGMINE 1 MG/ML 10 ML VIAL ONE (07:42)
[2019-08-31] MEDS ORDERED: SUCCINYLCHOLINE CHLORIDE 100 MG/5 ML SYR IV ONE (07:42)
[2019-08-31] MEDS ORDERED: BUPIVACAINE (PF) 0.25% 30 ML VIAL SQ ONE (07:42)
[2019-08-31] MEDS ORDERED: PROPOFOL 10 MG/ML 20 ML VIAL IV ONE (07:42)
[2019-08-31] MEDS ORDERED: MIDAZOLAM 2 MG/2 ML VIAL ONE (07:42)
[2019-08-31] MEDS ORDERED: GLYCOPYRROLATE 0.2 MG/ML 2 ML VIAL ONE (07:42)
[2019-08-31] MEDS ORDERED: fentaNYL (PF) 50 MCG/ML 2 ML AMP ONE (07:42)
[2019-08-31] MEDS ORDERED: ROCURONIUM BROMIDE 10 MG/ML 10 ML VIAL IV ONE (07:42)
[2019-08-31] MEDS ORDERED: KETOROLAC 30 MG/ML 1 ML VIAL ONE (07:42)
[2019-08-31] MEDS ORDERED: PHENYLEPHRINE-0.9% NACL SYG 1 MG/10 ML SYRINGE ONE (07:42)
--- NOTE | 2019-08-31 07:56 | P.GSHP ---
History of Present Illness H&P Date: 08/31/19 Chief Complaint: Right upper quadrant pain This a 48-year-old female who presents today for laparoscopic cholestatic. Patient had complaints of right upper quadrant pain. Her recent HIDA scan shows abnormal ejection fraction consistent with chronic cholecystitis. Past Medical History Past Medical History: COPD, GERD/Reflux, Skin Disorder Additional Past Medical History / Comment(s): hiatal hernia, Psoriatic arthritis, psoriasis, rectal prolapse with surgery., COPD (no rx), Hx of fatty liver , arthritis neck., states nausea and vomiting . , LE[employer] GU[employer]IAN DA MCFADDEN # [phone] History of Any Multi-Drug Resistant Organisms: None Reported Past Surgical History: Hernia Repair, Tonsillectomy Additional Past Surgical History / Comment(s): excision of moles. 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 COLONOSCOPY, Lap Barrera Fundiplication (04/2019) Past Anesthesia/Blood Transfusion Reactions: No Reported Reaction Past Psychological History: Anxiety, Bipolar, Depression, Schizoaffective Disorder, Schizophrenia Additional Psychological History / Comment(s): . Smoking Status: Former smoker Past Alcohol Use History: None Reported Additional Past Alcohol Use History / Comment(s): smoked< 1 PPD for past 29 yrs, QUIT-05/2016. previous ETOH ABUSE- NO ALCOHOL SINCE 2013 Past Drug Use History: None Reported Additional Drug Use History / Comment(s): HX SUBTANCE ABUSE-STATES NO MARIJUANA SINCE 10/2016 - Past Family History Mother Family Medical History: Unable to Obtain Additional Family Medical History / Comment(s): PT ADOPTED Medications and Allergies Home Medications Medication Instructions Recorded Confirmed Type Venlafaxine HCl ER [Effexor XR] 75 mg PO DAILY #14 cap.er.24h 07/23/17 08/31/19 Rx Secukinumab [Cosentyx Pen] 150 mg SQ QMONTH 04/20/19 08/31/19 History Ziprasidone [Geodon] 40 mg PO BID-W/MEALS 05/01/19 08/31/19 History Calcium Carbonate [Tums] 500 mg PO DIRECTED PRN 08/28/19 08/31/19 History Ibuprofen [Motrin Ib] 400 mg PO DIRECTED PRN 08/28/19 08/31/19 History Multivit with Calcium,Iron,Min 1 each PO DAILY 08/28/19 08/31/19 History [Women's Multivitamin] Omeprazole [PriLOSEC] 20 mg PO AC-BID 08/28/19 08/31/19 History Allergies Allergy/AdvReac Type Severity Reaction Status Date / Time hydromorphone [From Dilaudid] Allergy Itching Verified 08/31/19 06:47 morphine Allergy Vomiting Verified 08/31/19 06:47 Surgical - Exam Vital Signs Temp Pulse Resp BP Pulse Ox 98.2 F 78 18 116/70 96 08/31/19 06:53 08/31/19 06:53 08/31/19 06:53 08/31/19 06:53 08/31/19 06:53 - General well developed, well nourished, no distress - Eyes PERRL - ENT normal pinna - Neck no masses - Respiratory normal expansion - Cardiovascular Rhythm: regular - Abdomen Abdomen: soft, non tender Assessment and Plan Assessment: Chronic cholecystitis. We'll perform laparoscopic cholecystectomy.
--- NOTE | 2019-08-31 08:32 | P.OP ---
Date of Procedure: 08/31/19 Preoperative Diagnosis: Cholecystitis Postoperative Diagnosis: Cholecystitis Cholelithiasis Procedure(s) Performed: I prescribed cholecystectomy Anesthesia: ENA Surgeon: Tyrel Tadeo Estimated Blood Loss (ml): 5 Pathology: other (Gallbladder) Condition: stable Disposition: PACU Description of Procedure: The patient was placed on the operating table. The patient received a general endotracheal tube anesthesia. The patients abdomen was prepped and draped in the usual sterile fashion. Through an infraumbilical stab incision, the fascia of the anterior abdominal wall was grasped with a pair of Kochers and then the Veress needle was placed in the peritoneal cavity. Position of the Veress needle was confirmed with positive drop test. The abdomen was then insufflated. After adequate insufflation, the 10 mm trocar was placed in the peritoneal cavity. Following this the laparoscope was placed in the peritoneal cavity. The patient was placed in the head-up, right side up position and then a 5 mm trocar was placed in the right lateral and right subcostal position under direct visualization. A 8 mm trocar was placed in the epigastric position. The gallbladder was grasped in the fundus and infundibulum. Traction on the gallbladder was placed in the lateral and the cephalad positions. The triangle of Calot was visualized.. The cystic duct was bluntly dissected until the union of the cystic duct and common bile duct was seen. A critical view of safety was achieved. The cystic duct was then divided and sealed with the Harmonic scissors. A PDS Endoloop was then placed throughout the cystic duct stump. The cystic artery divided and sealed with the Harmonic scissors. The gallbladder was then removed from the liver bed using Harmonic scissors. The gallbladder was then extracted through the epigastric port site. Operative field was checked for any bleeding spots and Harmonic scissors was used to coagulate the liver bed. The abdomen was irrigated. The trocars were removed. The skin was closed using interrupted 3-0 Vicryl suture. Dermabond dressing were applied. The patient tolerated the procedure well.
[2019-08-31] MEDS ORDERED: ONDANSETRON 4 MG/2 ML VIAL IVP ONE (09:14)
[2019-08-31] MEDS ORDERED: LACTATED RINGERS 1,000 ML IV ONE ×2 (09:15)
[2019-08-31 09:23] VITALS: RESP 16
[2019-08-31 10:15] VITALS: BP 121/80; PULSE 63
== END 2019-08-31 10:53 | disposition home or self-care (01) ==
LOC: OR 06:23
PROVIDERS: ATTEND Surgery
DX: K80.10 Calculus of gallbladder with chronic cholecystitis without obstruction (principal); J44.9 Chronic obstructive pulmonary disease, unspecified; K82.8 Other specified diseases of gallbladder; K21.9 Gastro-esophageal reflux disease without esophagitis; L40.50 Arthropathic psoriasis, unspecified; K76.0 Fatty (change of) liver, not elsewhere classified; F41.9 Anxiety disorder, unspecified; F31.9 Bipolar disorder, unspecified; F20.9 Schizophrenia, unspecified; Z87.19 Personal history of other diseases of the digestive system; Z98.890 Other specified postprocedural states; Z90.89 Acquired absence of other organs; Z87.891 Personal history of nicotine dependence; Z79.899 Other long term (current) drug therapy; Z88.5 Allergy status to narcotic agent
CPT/HCPCS: 81025; 88304; 47562; J2250; J1644; J1100; J2710; J0690; J2405; J3010; J1885; J2370; J0330; J2704

== ENCOUNTER 2019-10-16 11:44 | Observation (INO) | payer MEDICARE ==
[2019-10-16 12:57] LABS: Basophils # (A) 0.1 k/uL (0-0.2); Basophils % (A) 1 %; Eosinophils # (A) 0.2 k/uL (0-0.7); Eosinophils % (A) 2 %; HCT 39.2 % (34.0-46.0); HGB 13.3 gm/dL (11.4-16.0); Lymphocytes # (A) 1.7 k/uL (1.0-4.8); Lymphocytes % (A) 21 %; MCH 29.8 pg (25.0-35.0); MCV 87.4 fL (80.0-100.0); Mean Platelet Volume 8.5; Monocytes # (A) 0.5 k/uL (0-1.0); Monocytes % (A) 6 %; Neutrophils # (A) 5.5 k/uL (1.3-7.7); Neutrophils % (A) 68 %; Platelet Count 327 k/uL (150-450); RBC 4.48 m/uL (3.80-5.40); RDW 13.1 % (11.5-15.5)
[2019-10-16 13:02] LABS: ALT 108 U/L (4-34); AST 165 U/L (14-36); African American GFR (CKD) >90 (>60 ml/min/1.73 sqM); Albumin 4.4 g/dL (3.5-5.0); Alkaline Phosphatase 209 U/L (38-126); Anion Gap 9 mmol/L; Blood Urea Nitrogen 20 mg/dL (7-17); Calcium 9.3 mg/dL (8.4-10.2); Carbon Dioxide 21 mmol/L (22-30); Chloride 104 mmol/L (98-107); Glucose 107 mg/dL (74-99); Magnesium 1.6 mg/dL (1.6-2.3); Non-African American GFR(CKD) 81 (>60 ml/min/1.73 sqM); Sodium 134 mmol/L (137-145); Total Bilirubin 0.5 mg/dL (0.2-1.3); Total Protein 7.6 g/dL (6.3-8.2)
--- NOTE | 2019-10-16 13:06 | ED ---
Chest Pain HPI - General Chief Complaint: Chest Pain Stated Complaint: Chest pain Time Seen by Provider: 10/16/19 11:50 Source: patient Mode of arrival: ambulatory Limitations: no limitations - History of Present Illness Initial Comments: The patient is a 48-year-old female who presents to the emergency room with reported chest pain. She states it started while she was sitting down drinking a cup of coffee. It was located over the center substernal region without radiation. She states it made her feel short of breath and sweaty episode. She began chewing a full dose aspirin. States that the pain resolved after 15 minutes. No previous history of cardiac disease or arrhythmias. Denies any current chest pain. No ripping or tearing sensation to her back. She denies any unilateral numbness or weakness. No nausea or vomiting. 19 abdominal pain changes in her bowel or bladder habits. There are no alleviating, precipitating or modifying factors - Related Data Home Medications Medication Instructions Recorded Confirmed Secukinumab [Cosentyx Pen] 150 mg SQ QMONTH 04/20/19 10/16/19 Ziprasidone [Geodon] 40 mg PO BID-W/MEALS 05/01/19 10/16/19 Calcium Carbonate [Tums] 500 mg PO DIRECTED PRN 08/28/19 10/16/19 Multivit with Calcium,Iron,Min 1 each PO DAILY 08/28/19 10/16/19 [Women's Multivitamin] Omeprazole [PriLOSEC] 20 mg PO AC-BID 08/28/19 10/16/19 Previous Rx's Medication Instructions Recorded Venlafaxine HCl ER [Effexor XR] 75 mg PO DAILY #14 cap.er.24h 07/23/17 Ibuprofen [Motrin Ib] 200 mg PO Q6H PRN #0 10/17/19 Allergies Allergy/AdvReac Type Severity Reaction Status Date / Time hydromorphone [From Dilaudid] Allergy Itching Verified 10/16/19 12:50 morphine Allergy Vomiting Verified 10/16/19 12:50 Review of Systems ROS Statement: Those systems with pertinent positive or pertinent negative responses have been documented in the HPI. ROS Other: All systems not noted in ROS Statement are negative. EKG Findings - EKG Comments: EKG Findings:: EKG demonstrates a normal sinus rhythm with a ventricular rate of 83. MO interval 142. QRS 86. QTC of 441. There is an inverted T-wave with some ST depression in V2 through V6. Also Q waves in lead 3. No acute ST segment elevations. No old EKG to compare to Past Medical History Past Medical History: COPD, GERD/Reflux, Skin Disorder Additional Past Medical History / Comment(s): hiatal hernia, Psoriatic arthritis, psoriasis, rectal prolapse with surgery., COPD (no rx), Hx of fatty liver , arthritis neck., states nausea and vomiting . , LEGAL GUARDIAN DA MCFADDEN # [phone] History of Any Multi-Drug Resistant Organisms: None Reported Past Surgical History: Cholecystectomy, Hernia Repair, Tonsillectomy Additional Past Surgical History / Comment(s): excision of moles. 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 COLONOSCOPY, Lap Barrera Fundiplication (04/2019) Past Anesthesia/Blood Transfusion Reactions: No Reported Reaction Past Psychological History: Anxiety, Bipolar, Depression, Schizoaffective Disorder, Schizophrenia Smoking Status: Former smoker Past Alcohol Use History: None Reported Past Drug Use History: None Reported - Past Family History Mother Family Medical History: Unable to Obtain Additional Family Medical History / Comment(s): PT ADOPTED General Exam Limitations: no limitations General appearance: alert, in no apparent distress Head exam: Present: atraumatic, normocephalic, normal inspection Eye exam: Present: normal appearance, PERRL, EOMI. Absent: scleral icterus, conjunctival injection, periorbital swelling ENT exam: Present: normal exam, mucous membranes moist Neck exam: Present: normal inspection. Absent: tenderness, meningismus, lymphadenopathy Respiratory exam: Present: normal lung sounds bilaterally. Absent: respiratory distress, wheezes, rales, rhonchi, stridor Cardiovascular Exam: Present: regular rate, normal rhythm, normal heart sounds. Absent: systolic murmur, diastolic murmur, rubs, gallop, clicks GI/Abdominal exam: Present: soft, normal bowel sounds. Absent: distended, tenderness, guarding, rebound, rigid Extremities exam: Present: normal inspection, full ROM, normal capillary refill. Absent: tenderness, pedal edema, joint swelling, calf tenderness Back exam: Present: normal inspection Neurological exam: Present: alert, oriented X3, CN II-XII intact Psychiatric exam: Present: normal mood, flat affect Skin exam: Present: warm, dry, intact, normal color. Absent: rash Course Vital Signs 10/16/19 10/16/19 10/16/19 11:50 14:03 14:27 Temperature 98.2 F 97.8 F Pulse Rate 77 87 98 Respiratory 20 18 20 Rate Blood Pressure 143/86 108/74 106/60 O2 Sat by Pulse 99 98 99 Oximetry 10/16/19 16:14 Temperature Pulse Rate 70 Respiratory 18 Rate Blood Pressure 110/85 O2 Sat by Pulse 99 Oximetry Chest Pain MDM - MDM Upon arrival the patient was placed into room 13. A thorough history and physical exam was performed. Patient is a stomatic at this time. A 12-lead EKG was performed which demonstrates some inverted T waves and ST depression in V2 and V3. Laboratory studies were conducted. CMP is remarkable for an AST 165, ALT 108 and alk phos of 209. Because of this I did complete a limited abdominal ultrasound. Gallbladder surgically absent with signs of hepatic steatosis. The patient has had repeat evaluation which demonstrates no recurrence of her pain. The patient has not had a previous cardiac workup and with abnormal EKG findings I did recommend hospital admission or discharge or troponins and be seen by cardiology. Patient did agree to this. Bridging orders were placed. She will be admitted to Dr. Quan who accepted admission. The patient was taken to the floor in stable condition Disposition Clinical Impression: Chest pain, Schizoaffective disorder, bipolar type Disposition: ADMITTED IP TO THIS HOSP Condition: Stable Is patient prescribed a controlled substance at d/c from ED?: No Decision to Admit Reason: Admit from EC Decision Date: 10/16/19 Decision Time: 16:05
--- NOTE | 2019-10-16 13:06 | XR ---
EXAMINATION TYPE: XR chest 2V DATE OF EXAM: 10/16/2019 COMPARISON: NONE HISTORY: Chest pain. History of COPD. TECHNIQUE: Frontal and lateral views of the chest are obtained. FINDINGS: There is no focal air space opacity, pleural effusion, or pneumothorax seen. The cardiac silhouette size is within normal limits. The osseous structures are intact. Osteophytes are seen at the distal first ribs. IMPRESSION: No acute cardiopulmonary process.
[2019-10-16 13:15] LABS: Potassium 4.8 mmol/L (3.5-5.1)
[2019-10-16 13:17] LABS: INR 0.9 (<1.2); Partial Thromboplastin Time 25.3 sec (22.0-30.0); Prothrombin Time 9.8 sec (9.0-12.0)
--- NOTE | 2019-10-16 15:39 | US ---
EXAMINATION TYPE: US abdomen limited DATE OF EXAM: 10/16/2019 COMPARISON: NONE CLINICAL HISTORY: RUQ, abn labs. 1 month post cholecystectomy, chest pain EXAM MEASUREMENTS: Liver Length: 15.4 cm Gallbladder Wall: Surgically absent CBD: 0.4cm Right Kidney: 10.7 x 3.6 x 5.6cm Examination is limited by overlying bowel gas. Pancreas: limited views appear wnl Liver: There is increased echogenicity of the hepatic parenchyma with diminished visualization of th e portal triads most commonly relating to hepatic steatosis and limiting evaluation for underlying he patic masses. Gallbladder: Surgically absent Evidence for sonographic Hay's sign: no CBD: wnl Right Kidney: wnl IMPRESSION: Limited evaluation. No gross evidence of fluid collection in the gallbladder fossa. Heter ogenous liver may be on the basis of hepatic steatosis. Correlate with liver function tests.
[2019-10-16] MEDS ORDERED: NALOXONE 0.4 MG/ML 1 ML VIAL IV PRN (16:21)
[2019-10-16] MEDS ORDERED: CALCIUM CARBONATE 500 MG CHEWABLE PO PRN (16:22)
[2019-10-16] MEDS ORDERED: TEMAZEPAM 15 MG CAP PO PRN (17:00)
[2019-10-16] MEDS ORDERED: ALPRAZolam 0.25 MG TAB PO PRN (17:00)
[2019-10-16] MEDS ORDERED: ACETAMINOPHEN TAB 500 MG TAB PO PRN (17:00)
[2019-10-16] MEDS: ZIPRASIDONE 40 MG CAP PO SCH (17:46)
[2019-10-16] MEDS: PANTOPRAZOLE 40 MG TABLET PO SCH (17:46)
[2019-10-16] MEDS ORDERED: LORazepam 0.5 MG TAB PO PRN (19:27)
[2019-10-16 19:55] LABS: Albumin 4.2 g/dL (3.5-5.0); Calcium 9.4 mg/dL (8.4-10.2); Total Bilirubin 0.3 mg/dL (0.2-1.3); Total Protein 7.4 g/dL (6.3-8.2)
--- NOTE | 2019-10-16 20:53 | HP ---
HISTORY AND PHYSICAL DATE OF SERVICE: 10/16/2019 CHIEF COMPLAINT: Chest pain. HISTORY OF PRESENT ILLNESS: This 48-year-old woman with a past medical history of multiple medical problems including history of COPD, GERD, history of hiatal hernia, psoriatic arthritis, history of psoriasis, history of rectal prolapse, history of cholecystectomy, history of anxiety, bipolar depression, schizoaffective disorder, history of nicotine dependence, being followed by Dr. Yelena Borjas in the outpatient setting is complaining of chest pain. The patient was sitting down to drink a cup of coffee. The pain was located in the center subsequent radiating without radiation. The patient had some minimal shortness of breath and sweating and the patient came to [facility] and was admitted to the hospital for further evaluation and treatment. The patient had significant issues with substance abuse previously and schizoaffective disorder. The patient had legal guardian, Yosef Jain. There is no history of fever, rigors or chills. No history of headache, loss of consciousness or seizures. There is no radiation of pain elsewhere. After admission, evaluation included blood work which showed elevated AST and ALT and the patient also had an abdominal ultrasound which showed no gross findings at this time. There is no history of fever, rigors or chills. No history of headache, loss of consciousness or seizures. PAST MEDICAL HISTORY: History of COPD, GERD, history of hiatal hernia, psoriatic arthritis, rectal prolapse, cholecystectomy, anxiety. MEDICATIONS: Prior to admission include: 1. Multivitamins 1 p.o. daily. 2. Ibuprofen 400 mg q.6h p.r.n. 3. Tums. 4. Effexor XR 75 mg p.o. daily. 5. Geodon 40 mg b.i.d. 6. Cosentyx 150 mg q.monthly. 7. Prilosec 20 mg b.i.d. ALLERGIES: DILAUDID, MORPHINE. FAMILY HISTORY: The patient is adopted, unable to attend. SOCIAL HISTORY: Previous history of smoking. No history of current smoking or alcohol intake. REVIEW OF SYSTEMS: ENT: No diminished vision. Diminished hearing. CARDIOVASCULAR system: As mentioned earlier. RESPIRATION: No cough. GI as mentioned earlier. no dysuria or hematuria. NERVOUS SYSTEM: No numbness or weakness. ALLERGY: No asthma or hayfever. MUSCULOSKELETAL as mentioned earlier. HEMATOLOGY/ONCOLOGY: No history of anemia. ENDOCRINE: As mentioned earlier. CONSTITUTIONAL: As mentioned earlier. DERMATOLOGY: Negative. RHEUMATOLOGY negative. PSYCHIATRY as mentioned earlier. PHYSICAL EXAMINATION: Alert and oriented times three. Pulse 70. Blood pressure 110/85, respiration 18, temperature 97.8, pulse ox 99% on room air. HEENT: Conjunctivae normal. NECK: No jugular venous distention. CARDIOVASCULAR: S1, S2 muffled. RESPIRATORY: Breath sounds diminished in the bases. A few scattered rhonchi. No crackles. ABDOMEN: Soft, nontender. No mass palpable. LEGS: No edema. No swelling. Nervous system: Higher functions as mentioned earlier. Moves all four limbs. No focal motor or sensory deficits. LYMPHATICS: No lymph nodes palpable in the neck, axillae or groin. SKIN: No ulcer, no rashes and no bleeding. JOINTS: No active deforming arthropathy. LABS: CBC within normal limits. Sodium 134, potassium 4.8. AST/ALT noted. ASSESSMENT: 1. Chest pain possible unstable angina. 2. Hyponatremia. 3. Increased AST/ALT possibly hepatitis, rule out chronic liver disease. 4. Chronic obstructive pulmonary disease. 5. Gastroesophageal reflux disease. 6. Hiatal hernia. 7. Psoriatic arthritis. 8. History of psoriasis. 9. History rectal prolapse surgery. 10.History of fatty liver. 11.Legal guardian. 12.History of cholecystectomy. 13.History of rectal prolapse. 14.History of anxiety/bipolar depression. 15.History of schizoaffective disorder. 16.Remote history of nicotine dependence. 17.Remote history of substance abuse and alcohol. 18.FULL CODE. RECOMMENDATIONS AND DISCUSSION: This 48-year-old woman who presented with multiple complex medical issues. We will monitor the patient closely. Rule out myocardial infarction. Otherwise, repeat labs including elevated LFTs. Cardiology consultation. Possible stress test. Resume the home medications. Prognosis guarded because of multiple complex medical issues. A copy of this dictation being forwarded to Dr. Yelena Borjas who is the primary physician. MMODL / IJN: [id number] /
[2019-10-17 03:54] LABS: Appearance,Urine Clear (Clear); Bilirubin,Urine Negative (Negative); Blood,Urine Negative (Negative); Color,Urine Light Yellow; Glucose,Urine (UA) Negative (Negative); Ketones,Urine Negative (Negative); Leukocyte Esterase,Urine Negative (Negative); Nitrite,Urine Negative (Negative); Protein,Urine Negative (Negative); Specific Gravity,Urine 1.009 (1.001-1.035); Urobilinogen,Urine <2.0 mg/dL (<2.0)
[2019-10-17 04:05] LABS: Amphetamine Screen,Urine Not Detected (NotDetected); Barbiturate Screen,Urine Not Detected (NotDetected); Benzodiazepines Screen,Urine Not Detected (NotDetected); Cocaine Screen,Urine Not Detected (NotDetected); Methadone Screen, Urine Not Detected (NotDetected); Opiate Screen,Urine Not Detected (NotDetected); Oxycodone Screen, Urine Not Detected (NotDetected); Phencyclidine Screen,Urine Not Detected (NotDetected); Tricyclic Antidepressant,Urine Not Detected (NotDetected); Urn Cannabinoid Scrn Not Detected (NotDetected)
[2019-10-17 06:02] LABS: HCT 38.7 % (34.0-46.0); HGB 12.9 gm/dL (11.4-16.0); MCH 29.9 pg (25.0-35.0); MCHC 33.3 g/dL (31.0-37.0); MCV 89.8 fL (80.0-100.0); Mean Platelet Volume 7.8; Platelet Count 289 k/uL (150-450); RBC 4.31 m/uL (3.80-5.40); RDW 13.3 % (11.5-15.5); WBC 6.5 k/uL (3.8-10.6)
[2019-10-17 06:21] LABS: Eosinophils # (M) 0.13 k/uL (0-0.7); Lymphocytes # (M) 2.93 k/uL (1.0-4.8); Monocytes # (M) 0.33 k/uL (0-1.0); Neutrophils # (M) 3.12 k/uL (1.3-7.7); Neutrophils % (M) 48 %; Nucleated Red Blood Cells 0 /100 WBC (0-0); Total Cells Counted 100
[2019-10-17 06:39] LABS: Calcium 9.6 mg/dL (8.4-10.2); Potassium 4.5 mmol/L (3.5-5.1)
[2019-10-17 07:28] VITALS: RESP 18
[2019-10-17] MEDS ORDERED: VENLAFAXINE HCL ER 75 MG CAP PO SCH (09:00)
[2019-10-17] MEDS ORDERED: MULTIVITAMINS, THERA 1 EACH TAB PO SCH (09:00)
[2019-10-17] MEDS: ZIPRASIDONE 40 MG CAP PO SCH (09:21)
[2019-10-17] MEDS: PANTOPRAZOLE 40 MG TABLET PO SCH (09:21)
[2019-10-17 11:35] VITALS: BP 115/71; PULSE 64; TEMP 97.7
[2019-10-17 11:44] LABS: Albumin 4.1 g/dL (3.5-5.0); Bilirubin,Unconjugated 0.4 mg/dL (0.0-1.1); Total Bilirubin 0.4 mg/dL (0.2-1.3); Total Protein 6.7 g/dL (6.3-8.2)
--- NOTE | 2019-10-17 12:50 | P.CRDCN ---
History of Present Illness History of present illness: HISTORY OF PRESENTING ILLNESS This is a pleasant 48-year-old female past medical history significant for COPD, gastroesophageal reflux disease and recent barrera fundoplication with Dr. Stanley April 2019 with subsequent return of significant hiatal hernia. She denies prior history of coronary artery disease and does not follow in the office with a occupational therapist assistants. We have been asked to see in consultation for chest pain. She states yesterday morning after eating breakfast she sat down to drink a cup of coffee and she experienced a pressure sensation in the epigastric region resting for approximately 5 minutes associated with shortness of breath and diaphoresis. For breakfast she had a bowl of cereal, blueberries and a doughnut. The pain did not radiate through to the back, down the arm, into the neck or the jaw. She denies any associated nausea, vomiting, dizziness or palpitations. The pain is mildly reproducible epigastric region at the time of my exam. DIAGNOSTICS EKG reveals sinus mechanism heart rate of 83, T wave inversions noted in the anterior precordial leads. No old EKG for comparison. Chest xray negative for an acute cardiopulmonary process. Abdominal ultrasound reveals no gross evidence of fluid collection in the gallbladder fossa, heterogeneous liver may be on the basis of hepatic steatosis Laboratory reviewed, a BC unremarkable, d-dimer 0.23, sodium 138, potassium 4.5, creatinine 0.89, cardiac enzymes negative 4, AST on admission 139, ALT 110, alkaline phosphatase 206. She takes no daily cardiac medications. She has never undergone a cardiac evaluation in the form of stress testing. REVIEW OF SYSTEMS At the time of my exam: CONSTITUTIONAL: Denies fever or chills. CARDIOVASCULAR: Denies chest pain, shortness of breath, orthopnea, PND or palpitations. RESPIRATORY: Denies cough. GASTROINTESTINAL: Denies abdominal pain, diarrhea, constipation, nausea or vomiting. MUSCULOSKELETAL: Denies myalgias. NEUROLOGIC: Denies numbness, tingling or weakness. ENDOCRINE: Denies fatigue, weight change, polydipsia or polyurina. GENITOURINARY: Denies burning, hematuria or urgency with micturation. HEMATOLOGIC: Denies history of anemia or bleeding. PHYSICAL EXAMINATION Blood pressure 107/73 heart rate 72 afebrile and maintaining oxygen saturation on room air. CONSTITUTIONAL: No apparent distress. HEENT: Head is normocephalic. Pupils are equal, round. Sclerae anicteric. Mucous membranes of the mouth are moist. No JVD. No carotid bruit. CHEST EXAMINATION: Lungs are clear to auscultation. No chest wall tenderness is noted on palpation or with deep breathing. HEART EXAMINATION: Regular rate and rhythm. S1, S2 heard. No murmurs, gallops or rub. ABDOMEN: Soft, nontender. Positive bowel sounds. EXTREMITIES: 2+ peripheral pulses, no lower extremity edema and no calf tenderness. NEUROLOGIC EXAMINATION: Patient is awake, alert and oriented x3. ASSESSMENT Chest pain, atypical for angina. An acute coronary event has been ruled out Elevated liver enzymes of unknown etiology. Patient is a recovering alcoholic last drink was 6 years ago Gastroesophageal reflux disease status post Barrera fundoplication Hiatal hernia COPD Former nicotine dependence PLAN An acute coronary event has been ruled out. 2-D echocardiogram and Doppler study has been obtained and will be reviewed. Pain is atypical to be related Janine likely related to underlying GI etiology. Ongoing medical management and evaluation. Stable for discharge from a cardiac perspective, outpatient stress testing recommended. Thank you kindly for this consultation. Nurse Practitioner note has been reviewed, I agree with a documented findings and plan of care. Patient was seen and examined. Past Medical History Past Medical History: COPD, GERD/Reflux, Skin Disorder Additional Past Medical History / Comment(s): hiatal hernia, Psoriatic arthritis, psoriasis, rectal prolapse with surgery., COPD (no rx), Hx of fatty liver , arthritis neck., states nausea and vomiting . , LEGAL GUARDIAN DA MCFADDEN # [phone] History of Any Multi-Drug Resistant Organisms: None Reported Past Surgical History: Cholecystectomy, Hernia Repair, Tonsillectomy Additional Past Surgical History / Comment(s): excision of moles. 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 COLONOSCOPY, Lap Barrera Fundiplication (04/2019) Past Anesthesia/Blood Transfusion Reactions: No Reported Reaction Past Psychological History: Anxiety, Bipolar, Depression, Schizoaffective Disorder, Schizophrenia Smoking Status: Former smoker Past Alcohol Use History: None Reported Past Drug Use History: None Reported - Past Family History Mother Family Medical History: Unable to Obtain Additional Family Medical History / Comment(s): PT ADOPTED Medications and Allergies Home Medications Medication Instructions Recorded Confirmed Type Venlafaxine HCl ER [Effexor XR] 75 mg PO DAILY #14 cap.er.24h 07/23/17 10/16/19 Rx Secukinumab [Cosentyx Pen] 150 mg SQ QMONTH 04/20/19 10/16/19 History Ziprasidone [Geodon] 40 mg PO BID-W/MEALS 05/01/19 10/16/19 History Calcium Carbonate [Tums] 500 mg PO DIRECTED PRN 08/28/19 10/16/19 History Ibuprofen [Motrin Ib] 400 mg PO Q6H PRN 08/28/19 10/16/19 History Multivit with Calcium,Iron,Min 1 each PO DAILY 08/28/19 10/16/19 History [Women's Multivitamin] Omeprazole [PriLOSEC] 20 mg PO AC-BID 08/28/19 10/16/19 History Allergies Allergy/AdvReac Type Severity Reaction Status Date / Time hydromorphone [From Dilaudid] Allergy Itching Verified 10/16/19 12:50 morphine Allergy Vomiting Verified 10/16/19 12:50 Physical Exam Vitals: Vital Signs Temp Pulse Pulse Resp BP BP Pulse Ox 10/17/19 07:00 97.5 F L 72 18 107/73 98 10/17/19 04:00 97.9 F 62 16 98/63 97 10/16/19 23:37 98.0 F 66 18 111/73 100 10/16/19 19:35 97.5 F L 82 124/87 99 10/16/19 17:17 97.7 F 63 19 121/82 99 10/16/19 16:14 70 18 110/85 99 10/16/19 14:27 97.8 F 98 20 106/60 99 10/16/19 14:03 87 18 108/74 98 10/16/19 11:50 98.2 F 77 20 143/86 99 Intake and Output 10/16/19 10/17/19 10/17/19 22:59 06:59 14:59 Intake Total 120 Balance 120 Intake: Oral 120 Other: Weight 84.368 kg Results 10/17/19 05:47 10/17/19 05:47 Cardiac Enzymes 10/16/19 10/16/19 10/16/19 Range/Units 12:41 12:41 18:57 AST 165 H (14-36) U/L Troponin I <0.012 <0.012 (0.000-0.034) ng/mL 10/16/19 10/17/19 10/17/19 Range/Units 18:57 00:33 05:47 AST 139 H (14-36) U/L Troponin I <0.012 <0.012 (0.000-0.034) ng/mL Coagulation 10/16/19 Range/Units 12:41 PT 9.8 (9.0-12.0) sec APTT 25.3 (22.0-30.0) sec CBC 10/16/19 10/17/19 Range/Units 12:41 05:47 WBC 8.0 6.5 (3.8-10.6) k/uL RBC 4.48 4.31 (3.80-5.40) m/uL Hgb 13.3 12.9 (11.4-16.0) gm/dL Hct 39.2 38.7 (34.0-46.0) % Plt Count 327 289 (150-450) k/uL Comprehensive Metabolic Panel 10/16/19 10/16/19 10/17/19 Range/Units 12:41 18:57 05:47 Sodium 134 L 137 138 (137-145) mmol/L Potassium 4.8 4.5 (3.5-5.1) mmol/L Chloride 104 103 105 (98-107) mmol/L Carbon Dioxide 21 L 23 23 (22-30) mmol/L BUN 20 H 18 H 19 H (7-17) mg/dL Creatinine 0.84 0.90 0.89 (0.52-1.04) mg/dL Glucose 107 H 125 H 98 (74-99) mg/dL Calcium 9.3 9.4 9.6 (8.4-10.2) mg/dL AST 165 H 139 H (14-36) U/L ALT 108 H 110 H (4-34) U/L Alkaline Phosphatase 209 H 206 H (38-126) U/L Total Protein 7.6 7.4 (6.3-8.2) g/dL Albumin 4.4 4.2 (3.5-5.0) g/dL Current Medications Generic Name Dose Route Start Last Admin Trade Name Freq PRN Reason Stop Dose Admin Acetaminophen 500 mg 10/16/19 17:00 Tylenol Tab PO Q6HR PRN Fever and/ or Pain Calcium Carbonate/Glycine 500 mg 10/16/19 16:22 Tums PO DAILY PRN Heartburn Lorazepam 0.5 mg 10/16/19 19:27 Ativan PO Q8HR PRN Anxiety Multivitamins 1 each 10/17/19 09:00 Theragran PO DAILY SAMRA Naloxone HCl 0.2 mg 10/16/19 16:21 Narcan IV Q2M PRN Opioid Reversal Pantoprazole Sodium 40 mg 10/16/19 17:30 10/16/19 17:46 Protonix PO 40 mg AC-BID SAMRA Administration Temazepam 15 mg 10/16/19 17:00 Restoril PO HS PRN Insomnia Venlafaxine HCl 75 mg 10/17/19 09:00 Effexor Xr PO DAILY SAMRA Ziprasidone 40 mg 10/16/19 17:30 10/16/19 17:46 Geodon PO 40 mg BID-W/MEALS SAMRA Administration Intake and Output 10/16/19 10/17/19 10/17/19 22:59 06:59 14:59 Intake Total 120 Balance 120 Intake: Oral 120 Other: Weight 84.368 kg 10/17/19 05:47 10/17/19 05:47
--- NOTE | 2019-10-17 16:50 | ECHOF ---
Referral Reason: MEASUREMENTS -------- HEIGHT: 165.1 cm WEIGHT: 84.4 kg BP: 115/71 RVIDd: 3.1 cm (< 3.3) IVSd: 1.1 cm (0.6 - 1.1) LVIDd: 4.0 cm (3.9 - 5.3) LVPWd: 1.2 cm (0.6 - 1.1) IVSs: 1.6 cm LVIDs: 2.8 cm LVPWs: 1.5 cm LA Diam: 3.2 cm (2.7 - 3.8) LAESV Index (A-L): 21.87 ml/m Ao Diam: 3.1 cm (2.0 - 3.7) AV Cusp: 1.6 cm (1.5 - 2.6) MV EXCURSION: 11.063 mm (> 18.000) MV EF SLOPE: 53 mm/s (70 - 150) EPSS: 0.7 cm MV E Lucas: 0.78 m/s MV DecT: 196 ms MV A Lucas: 0.90 m/s MV E/A Ratio: 0.87 RAP: 5.00 mmHg RVSP: 25.10 mmHg FINDINGS -------- Sinus rhythm. This was a technically adequate study. The left ventricular size is normal. There is borderline concentric left ventricular hypertrophy. Overall left ventricular systolic function is normal with, an EF between 55 - 60 %. The right ventricle is normal in size. Normal LA size by volume 22+/-6 ml/m2. The right atrial size is normal. Interatrial and interventricular septum intact. The aortic valve is trileaflet, and appears structurally normal. No aortic stenosis or regurgitation. The mitral valve is normal. Mild tricuspid regurgitation present. Right ventricular systolic pressure is normal at < 35 mmHg. There is no pulmonic regurgitation present. The aortic root size is normal. Normal inferior vena cava with normal inspiratory collapse consistent with estimated right atrial pre ssure of 5 mmHg. There is no pericardial effusion. CONCLUSIONS -------- 1. Sinus rhythm. 2. This was a technically adequate study. 3. The left ventricular size is normal. 4. There is borderline concentric left ventricular hypertrophy. 5. Overall left ventricular systolic function is normal with, an EF between 55 - 60 %. 6. Normal LA size by volume 22+/-6 ml/m2. 7. The aortic valve is trileaflet, and appears structurally normal. No aortic stenosis or regurgitati on. 8. The mitral valve is normal. 9. Mild tricuspid regurgitation present. 10. Right ventricular systolic pressure is normal at < 35 mmHg. 11. Normal inferior vena cava with normal inspiratory collapse consistent with estimated right atrial pressure of 5 mmHg. 12. There is no pericardial effusion. BURIAL VAULT MAKER: Julianna Roe RDCS
--- NOTE | 2019-10-18 09:33 | DS ---
DISCHARGE SUMMARY DATE OF SERVICE: 10/17/2019 FINAL DIAGNOSES: 1. Chest pain, myocardial infarction ruled out. 2. Rule out coronary artery disease. 3. Hyponatremia. 4. Increased AST/ALT possibly chronic hepatitis and chronic liver disease. 5. Chronic obstructive pulmonary disease. 6. Gastroesophageal reflux disease. 7. Hiatal hernia. 8. History of ETOH. 9. Psoriatic arthritis. 10.History of psoriasis. 11.History of rectal prolapse surgery. 12.History of fatty liver. 13.Legal guardian. 14.History of cholecystectomy. 15.History of anxiety, bipolar depression. 16.History of schizoaffective disorder. 17.Remote history of nicotine dependence. 18.Remote history of substance abuse and ETOH. 19.FULL CODE. DISCHARGE DISPOSITION: Patient will be discharged in stable condition. Guarded prognosis. Cardiology cleared the patient for discharge. HISTORY OF PRESENT ILLNESS: This 48-year-old woman with a past medical history of multiple medical problems being followed by Dr. Yelena Borjas in the outpatient setting admitted with chest pain. The patient was treated symptomatically. Myocardial infarction ruled out. Cardiology recommended a 2D echo. The patient will be discharged after clearance from Cardiology. Outpatient stress test is recommended. The patient is symptom-free at this time. On exam, vitals are stable. Cardiovascular: S1, S2 normal. Abdomen soft. Nervous system: No focal deficits. The LFTs also showing improving trends. The AST is 103 down from 165, ALT is 117 from 108, alkaline phosphatase is 199. DISCHARGE ADVICE AND MEDICATIONS: 1. Diet is cardiac diet. 2. Activity limited until followup. 3. Follow up with Dr. Yelena Borjas in 2-3 days. 4. Follow up with Cardiology with outpatient stress test. MEDICATIONS: 1. Cosentyx 150 mg subcu Q Saturday. 2. Geodon 40 mg p.o. b.i.d. 3. Prilosec 20 mg b.i.d. 4. Tums 500 mg p.r.n. 5. Multivitamins with calcium. 6. Effexor XR 75 mg p.o. daily. 7. Ibuprofen 200 p.r.n. Once again the patient will be discharged in stable condition with guarded prognosis. MMODL / IJN: [id number] /
== END 2019-10-17 16:00 | disposition home or self-care (01) ==
LOC: EC 11:44 → 1SOBS 16:22
PROVIDERS: ADMIT Hospitalist; ATTEND Hospitalist
DX: R07.89 Other chest pain (principal); E87.1 Hypo-osmolality and hyponatremia; J44.9 Chronic obstructive pulmonary disease, unspecified; R74.0 Nonspecific elevation of levels of transaminase and lactic acid dehydrogenase [LDH]; K21.9 Gastro-esophageal reflux disease without esophagitis; Z98.890 Other specified postprocedural states; L40.50 Arthropathic psoriasis, unspecified; L40.9 Psoriasis, unspecified; K44.9 Diaphragmatic hernia without obstruction or gangrene; K76.0 Fatty (change of) liver, not elsewhere classified; M47.812 Spondylosis without myelopathy or radiculopathy, cervical region; Z87.891 Personal history of nicotine dependence; F41.9 Anxiety disorder, unspecified; F25.0 Schizoaffective disorder, bipolar type; Z79.1 Long term (current) use of non-steroidal anti-inflammatories (NSAID); Z79.899 Other long term (current) drug therapy; Z88.5 Allergy status to narcotic agent; Z90.49 Acquired absence of other specified parts of digestive tract; Z90.89 Acquired absence of other organs
CPT/HCPCS: 99285; 36415; 93005; 93306; 85379; 80053; 80048; 80076; 83690; 83735; 84484 ×2; 85025 ×2; 85610; 85730; 81003; 80306; 71046; 76705; G0378 ×2

== ENCOUNTER → 2019-10-21 | Outpatient (CLI) | payer MEDICARE ==
[2019-10-21 11:52] LABS: Basophils % (A) 1 %; Eosinophils # (A) 0.2 k/uL (0-0.7); Eosinophils % (A) 3 %; Lymphocytes # (A) 2.3 k/uL (1.0-4.8); Lymphocytes % (A) 32 %; MCH 28.7 pg (25.0-35.0); MCHC 32.5 g/dL (31.0-37.0); MCV 88.5 fL (80.0-100.0); Mean Platelet Volume 8.3; Monocytes # (A) 0.3 k/uL (0-1.0); Monocytes % (A) 5 %; Neutrophils % (A) 57 %; Platelet Count 322 k/uL (150-450); RBC 4.52 m/uL (3.80-5.40); RDW 13.3 % (11.5-15.5); WBC 7.1 k/uL (3.8-10.6)
[2019-10-21 16:47] LABS: African American GFR (CKD) 86.4 (60.0-200.0); Albumin 4.2 g/dL (3.80-4.90); Albumin/Globulin Ratio 1.91 (1.60-3.17); Anion Gap 10.1 mmol/L (4.00-12.00); BUN/Creat Ratio 14.44 Ratio (12.00-20.00); Calcium 8.9 mg/dL (8.7-10.3); Carbon Dioxide 24.9 mmol/L (21.6-31.8); Globulin 2.2 g/dL (1.6-3.3); Non-African American GFR(CKD) 74.6 (60.0-200.0); Potassium 4.2 mmol/L (3.5-5.5); Total Bilirubin 0.4 mg/dL (0.2-1.2); Total Protein 6.4 g/dL (6.2-8.2)
== END | disposition home or self-care (01) ==
LOC: LABWHC1 10:19
PROVIDERS: ATTEND Hospitalist
DX: R94.5 Abnormal results of liver function studies (principal)
CPT/HCPCS: 36415; 80053; 85025

== ENCOUNTER → 2020-01-08 | Outpatient (CLI) | payer MEDICARE ==
[2020-01-08 19:20] LABS: African American GFR (CKD) 75.5 (60.0-200.0); Albumin 4.7 g/dL (3.80-4.90); Albumin/Globulin Ratio 1.88 (1.60-3.17); Anion Gap 11.4 mmol/L (4.00-12.00); Calcium 9.8 mg/dL (8.7-10.3); Carbon Dioxide 23.6 mmol/L (21.6-31.8); Chol/HDL Ratio 4.63; Globulin 2.5 g/dL (1.6-3.3); Non-African American GFR(CKD) 65.2 (60.0-200.0); Potassium 4.6 mmol/L (3.5-5.5); Total Bilirubin 0.4 mg/dL (0.2-1.2); Total Protein 7.2 g/dL (6.2-8.2)
[2020-01-08 19:57] LABS: Hemoglobin A1C 5.9 % (4.0-6.0)
== END | disposition home or self-care (01) ==
LOC: LABWHC1 10:38
PROVIDERS: ATTEND Internal Medicine Interventional Cardiology
DX: R73.9 Hyperglycemia, unspecified (principal); R94.5 Abnormal results of liver function studies; E78.2 Mixed hyperlipidemia
CPT/HCPCS: 36415; 80053; 80061; 83036

== ENCOUNTER → 2021-02-16 | Outpatient (CLI) | payer MEDICARE ==
--- NOTE | 2021-02-20 14:30 | MM ---
Reason for exam: screening (asymptomatic). Last mammogram was performed 1 year and 10 months ago. History: Patient has history of other cancer at age 31 and is nulliparous. Benign US biopsy breast VAD LT of the left breast, September 14, 2016. Took hormonal contraceptives for 12 years. Physical Findings: A clinical breast exam by your physician is recommended on an annual basis and results should be correlated with mammographic findings. MG 3D Screening Mammo W/Cad Bilateral CC and MLO view(s) were taken. Prior study comparison: April 23, 2019, bilateral MG 3d screening mammo w/cad. April 15, 2018, bilateral MG 3d screening mammo w/cad. The breast tissue is heterogeneously dense. This may lower the sensitivity of mammography. Previous mammotome biopsy in the left breast. ASSESSMENT: Benign, BI-RAD 2 RECOMMENDATION: Routine screening mammogram of both breasts in 1 year.
== END | disposition home or self-care (01) ==
LOC: RADMAMWWP 12:33
PROVIDERS: ATTEND Family Medicine
DX: Z12.31 Encounter for screening mammogram for malignant neoplasm of breast (principal); Z85.9 Personal history of malignant neoplasm, unspecified; Z79.3 Long term (current) use of hormonal contraceptives
CPT/HCPCS: 77063; 77067

== ENCOUNTER → 2021-05-09 | Outpatient (CLI) | payer MEDICARE | END | disposition home or self-care (01) | LOC: LABWHC1 12:20 | PROVIDERS: ATTEND Physician Assistant Medical | DX: Z20.822 Contact with and (suspected) exposure to COVID-19 (principal); R06.7 Sneezing; R09.81 Nasal congestion | CPT/HCPCS: 87635; C9803 ==

== ENCOUNTER 2021-06-08 08:22 | Day surgery (SDC) | payer MEDICARE, OTHER ==
[2021-06-06 10:12] VITALS: BMI 34.8
[~2021-06-08 08:22] MED LIST changes: -DEXAMETHASONE SOD PHOSPHATE 10 MG/ML 1 ML VIAL IV ONE; -HEPARIN SODIUM,PORCINE 5,000 UNIT/ML 1 ML VIAL SQ ONE; -HYDROmorphone 0.5 MG/0.5 ML SYRINGE IVP PRN; +LIDOCAINE 1% (10MG/ML) FOR IV START INTRADERMA PRN; -LIDOCAINE 1% 20 ML VIAL (10MG/ML) FOR IV START INTRADERMA PRN; -ONDANSETRON 4 MG/2 ML VIAL IVP ONE
[2021-06-08 09:17] VITALS: TEMP 97.4
[2021-06-08] MEDS ORDERED: PROPOFOL 10 MG/ML 20 ML VIAL IV ONE (09:43)
[2021-06-08] MEDS ORDERED: LIDOCAINE 1% INJ 10MG/ML (20 ML MDV) ONE (09:43)
--- NOTE | 2021-06-08 09:52 | P.GSHP ---
History of Present Illness H&P Date: 06/08/21 Chief Complaint: Screening colonoscopy The [id number] female presents today for screening colonoscopy. Patient denies a significant GI complaints. Past Medical History Past Medical History: COPD, GERD/Reflux, Skin Disorder Additional Past Medical History / Comment(s): hiatal hernia, Psoriatic arthritis, psoriasis, rectal prolapse with surgery., COPD, Hx of fatty liver , arthritis neck., LEGAL GUARDIAN DA MCFADDEN # [phone] History of Any Multi-Drug Resistant Organisms: None Reported Past Surgical History: Cholecystectomy, Hernia Repair, Tonsillectomy Additional Past Surgical History / Comment(s): excision of moles. 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 COLONOSCOPY, Lap Barrera Fundiplication (04/2019) Past Anesthesia/Blood Transfusion Reactions: No Reported Reaction Additional Past Anesthesia/Blood Transfusion Reaction / Comment(s): pt is adopted Smoking Status: Former smoker - Past Family History Mother Family Medical History: Unable to Obtain Additional Family Medical History / Comment(s): PT ADOPTED Medications and Allergies Home Medications Medication Instructions Recorded Confirmed Type Venlafaxine HCl ER [Effexor XR] 75 mg PO DAILY #14 cap.er.24h 07/23/17 06/06/21 Rx Secukinumab [Cosentyx Pen] 150 mg SQ QMONTH 04/20/19 06/06/21 History Ziprasidone [Geodon] 40 mg PO BID-W/MEALS 05/01/19 06/06/21 History Calcium Carbonate [Tums] 500 mg PO DIRECTED PRN 08/28/19 06/06/21 History Multivit with Calcium,Iron,Min 1 each PO DAILY 08/28/19 06/06/21 History [Women's Multivitamin] Omeprazole [PriLOSEC] 20 mg PO AC-BID 08/28/19 06/06/21 History Ibuprofen [Motrin Ib] 200 mg PO Q6H PRN #0 10/17/19 06/06/21 Rx Albuterol Inhaler [Ventolin Hfa 1 puff INHALATION DAILY PRN 06/06/21 06/06/21 History Inhaler] Cholecalciferol [Vitamin D3 (25 50 mcg PO DAILY 06/06/21 06/06/21 History Mcg = 1000 Iu)] LORazepam [Ativan] 0.5 mg PO BID PRN 06/08/21 06/08/21 History Allergies Allergy/AdvReac Type Severity Reaction Status Date / Time hydromorphone [From Dilaudid] Allergy Itching Verified 10/16/19 12:50 morphine Allergy Vomiting Verified 10/16/19 12:50 surgical tape and glue Allergy Rash/Hives, Uncoded 06/06/21 10:04 itching Surgical - Exam Vital Signs Temp Pulse Resp BP Pulse Ox 97.4 F L 80 16 135/95 98 06/08/21 09:16 06/08/21 09:16 06/08/21 09:16 06/08/21 09:16 06/08/21 09:16 - General well developed, well nourished, no distress - Eyes PERRL - ENT normal pinna - Neck no masses - Respiratory normal expansion - Cardiovascular Rhythm: regular - Abdomen Abdomen: soft, non tender Assessment and Plan Assessment: We'll perform screening colonoscopy.
--- NOTE | 2021-06-08 10:06 | P.OP ---
Date of Procedure: 06/08/21 Preoperative Diagnosis: Screening colonoscopy Postoperative Diagnosis: Mild diverticulosis Procedure(s) Performed: Colonoscopy Anesthesia: MAC Surgeon: Tyrel Tadeo Pathology: none sent Condition: stable Disposition: PACU Description of Procedure: The patient's placed on the endoscopy table in the lateral position she received IV sedation. The digital rectal exam was performed which revealed no abnormalities. The colonoscope was then placed patient anus passed rotator entire colon. Ileocecal valve visualized. Cecum, ascending and transverse colon appeared normal. Descending colon was examined. There was evidence of a few scattered diverticula.. There was evidence of previous colorectal a nastomosis this was visualized there is no scarring or inflammatory changes. Scope was brought back the rectum this appeared normal. The office.
[2021-06-08 10:25] VITALS: BP 107/74; PULSE 66; RESP 15
== END 2021-06-08 10:42 | disposition home or self-care (01) ==
LOC: ORWHC2ENDO 08:22
PROVIDERS: ATTEND Surgery
DX: Z12.11 Encounter for screening for malignant neoplasm of colon (principal); K57.30 Diverticulosis of large intestine without perforation or abscess without bleeding; Z90.49 Acquired absence of other specified parts of digestive tract; K21.9 Gastro-esophageal reflux disease without esophagitis; J44.9 Chronic obstructive pulmonary disease, unspecified; L40.9 Psoriasis, unspecified; L40.50 Arthropathic psoriasis, unspecified; K44.9 Diaphragmatic hernia without obstruction or gangrene; K76.0 Fatty (change of) liver, not elsewhere classified; Z98.890 Other specified postprocedural states; Z87.891 Personal history of nicotine dependence; F41.9 Anxiety disorder, unspecified; F31.9 Bipolar disorder, unspecified; Z79.899 Other long term (current) drug therapy; Z88.5 Allergy status to narcotic agent; Z91.09 Other allergy status, other than to drugs and biological substances
CPT/HCPCS: J2001; J2704; G0121; 45378

== ENCOUNTER → 2022-04-06 | Outpatient (CLI) | payer OTHER ==
--- NOTE | 2022-04-06 15:47 | CTL ---
EXAMINATION TYPE: CT Low Dose Lung DATE OF EXAM ORDERED: 04/06/2022 HISTORY: Lung cancer screening CT DLP: 127.[address] CTDI: 4 mGy Automated exposure control for dose reduction was used. SCREENING VISIT: Initial COMPARISON: None TECHNIQUE: Low dose computed tomography scan was performed through the chest at 1 mm thick sections a nd reconstructed images in multiple planes at 1 mm and [address] DIAGNOSTIC QUALITY: Satisfactory FINDINGS: LUNG NODULES: None. LUNGS: COPD: Severity: Mild centrilobular emphysema changes. Fibrosis: Severity: None Lymph nodes: None Other findings: None RIGHT PLEURAL SPACE: Effusion: None Calcification: None Thickening: None Pneumothorax: None LEFT PLEURAL SPACE: Effusion: None Calcification: None Thickening: None Pneumothorax: None HEART: Heart Size: Normal Coronary Calcification: None Pericardial Effusion: None OTHER FINDINGS: Upper abdomen: None Bony thorax: Mild multilevel disc degeneration changes. Supraclavicular region: None Other: Small hiatal hernia. IMPRESSION: 1. No evidence for clinically significant pulmonary nodules. Mild centrilobular emphysema changes. 2. Small hiatal hernia. CT LUNG RAD AND CT CHEST RECOMMENDATION: Lung-Rad 2 Benign Appearance or Behavior: Continue annual sc reening with LDCT in 12 months. S Modifier (other clinically significant findings): None
== END | disposition home or self-care (01) ==
LOC: RADCTMAIN 15:08 → EEVIPCON 15:15
DX: Z12.2 Encounter for screening for malignant neoplasm of respiratory organs (principal); J43.2 Centrilobular emphysema; K44.9 Diaphragmatic hernia without obstruction or gangrene; Z87.891 Personal history of nicotine dependence
CPT/HCPCS: 71271

== ENCOUNTER → 2022-04-26 | Outpatient (CLI) | payer OTHER ==
--- NOTE | 2022-04-27 19:21 | MM ---
Reason for Exam: Screening (asymptomatic). Last mammogram was performed 1 year(s) and 2 month(s) ago. Patient History: Menarche at age 12. Patient has no children. Postmenopausal. Other cancer, age 31. Patient used Hormonal Contraceptives for 12 years. 09/14/2016, Benign Core Biopsy on the left side. Risk Values: Feli 5 year model risk: 1.3%. NCI Lifetime model risk: 10.1%. Prior Study Comparison: 04/15/2018 Bilateral Screening Mammogram, [facility]. 04/23/2019 Bilateral Screening Mammogram, [facility]. 02/16/2021 Bilateral Screening Mammogram, [facility]. Tissue Density: The breast tissue is heterogeneously dense. This may lower the sensitivity of mammography. Findings: Analyzed By CAD. Flexor clip in the left breast. There is no suspicious group of microcalcifications or new suspicious mass in either breast. Overall Assessment: Negative, BI-RAD 1 Management: Screening Mammogram of both breasts in 1 year. A clinical breast exam by your physician is recommended on an annual basis and results should be correlated with mammographic findings. Electronically signed and approved by: Imer Gordon DO
== END | disposition home or self-care (01) ==
LOC: RADMAMWWP 14:42
DX: Z12.31 Encounter for screening mammogram for malignant neoplasm of breast (principal); Z78.0 Asymptomatic menopausal state
CPT/HCPCS: 77067

== ENCOUNTER → 2023-04-12 | Outpatient (CLI) | payer OTHER ==
[2023-04-12 20:26] LABS: ALT 101 U/L (8-44); AST 68 U/L (13-35); Chol/HDL Ratio 2.85 Ratio; LDL Cholesterol,Calculated 60.3 mg/dL (0.0-131.0)
== END | disposition home or self-care (01) ==
LOC: LABWHC1 12:23
PROVIDERS: ATTEND Internal Medicine Interventional Cardiology
DX: E78.2 Mixed hyperlipidemia (principal)
CPT/HCPCS: 36415; 80061; 84450; 84460

== ENCOUNTER → 2023-05-31 | Outpatient (CLI) | payer OTHER ==
[2023-05-31 16:33] LABS: Basophils # (A) 0.07 X 10*3/uL (0.00-0.10); Basophils % (A) 0.5 %; Eosinophils # (A) 0.18 X 10*3/uL (0.04-0.35); Eosinophils % (A) 1.3 %; HCT 39.4 % (37.2-46.3); Lymphocytes # (A) 2.07 X 10*3/uL (0.90-5.00); Lymphocytes % (A) 14.7 %; MCH 28.9 pg (27.0-32.0); MCV 87.6 FL (80.0-97.0); Mean Platelet Volume 10.9 FL (9.5-12.2); Monocytes # (A) 1.25 X 10*3/uL (0.20-1.00); Monocytes % (A) 8.9 %; NRBC Per 100 WBC 0 X 10*3/uL (0.00-0.01); Neutrophils # (A) 10.49 X 10*3/uL (1.80-7.70); Neutrophils % (A) 74.2 %; Platelet Count 345 X 10*3/uL (140-440); RDW 13.2 % (11.5-14.5); WBC 14.12 X 10*3/uL (4.50-10.00)
[2023-05-31 16:44] LABS: ALT 179 U/L (8-44); AST 101 U/L (13-35); Albumin 4.2 d/dL (3.8-4.9); Blood Urea Nitrogen 12.4 mg/dL (9.0-27.0)
[2023-05-31 16:57] LABS: Erythrocyte Sedimentation Rate 78 mm/Hr (0-30)
== END | disposition home or self-care (01) ==
LOC: LABWHC1 11:55
PROVIDERS: ATTEND Internal Medicine Rheumatology
DX: L40.50 Arthropathic psoriasis, unspecified (principal); Z79.899 Other long term (current) drug therapy
CPT/HCPCS: 36415; 82040; 82565; 84450; 84460; 84520; 85025; 85652; 86140; 86480

== ENCOUNTER → 2023-06-07 | Outpatient (CLI) | payer OTHER ==
--- NOTE | 2023-06-07 14:38 | MM ---
Reason for Exam: Screening (asymptomatic). Last mammogram was performed 1 year(s) and 1 month(s) ago. Patient History: Menarche at age 12. Patient has no children. Postmenopausal. Other cancer, age 31. Patient used Hormonal Contraceptives for 12 years. 09/14/2016, Benign Core Biopsy on the left side. Risk Values: Feli 5 year model risk: 1.4%. NCI Lifetime model risk: 9.9%. Prior Study Comparison: 04/23/2019 Bilateral Screening Mammogram, [facility]. 02/16/2021 Bilateral Screening Mammogram, [facility]. 04/26/2022 Bilateral MG screening mammo w CAD, [facility]. Tissue Density: The breast tissue is heterogeneously dense. This may lower the sensitivity of mammography. Findings: Analyzed By CAD. New group of punctate calcifications within the central right breast at posterior depth. No suspicious group of calcifications within the left breast. No new suspicious masses within either breast. Biopsy clip of the left breast. Chronic nodularity within the left breast. Overall Assessment: Incomplete: need additional imaging evaluation, BI-RAD 0 Management: Diagnostic Mammogram of the right breast. A clinical breast exam by your physician is recommended on an annual basis and results should be correlated with mammographic findings. [facility] will attempt to contact patient to return for supplemental views and ultrasound if indicated. Note on Feli scores and lifetime risk: 1. A Feli score greater than 3% is considered moderate risk. If this is the case, consider specialist referral to assess eligibility for a risk reducing agent. If overall lifetime risk for the development of breast cancer is 20% or higher, the patient may qualify for future screening with alternating mammogram and breast MRI. Electronically signed and approved by: Lalo Cruz D.O.
== END | disposition home or self-care (01) ==
LOC: RADMAMWWP 13:55
DX: Z12.31 Encounter for screening mammogram for malignant neoplasm of breast (principal); Z78.0 Asymptomatic menopausal state
CPT/HCPCS: 77067

== ENCOUNTER → 2023-06-17 | Outpatient (CLI) | payer OTHER ==
--- NOTE | 2023-06-17 13:44 | CTL ---
EXAMINATION TYPE: CT Low Dose Lung DATE OF EXAM: 06/17/2023 1:36 PM CLINICAL INDICATION:Female, 52 years old with history of Z87.891 PERSONAL HX NICOTINE DEPENDENCE; Per luis angel hx tobacco use 1.5 packs/day x45 years. No longer smoking , history of tobacco use. COMPARISON: 04/06/2022 TECHNIQUE: Multiple axial non-contrast scans were obtained from approximately the lung apices through the upper abdomen. Coronal and sagittal reformatted images were obtained. Low dose technique was uti lized. CT DLP: 78.6 mGycm, Automated exposure control for dose reduction was used. CT Contrast: Contrast used: None Oral contrast used: None FINDINGS: ======== Lack of intravenous contrast and low dose technique limits the evaluation of the vascular and soft ti ssue structures. LUNGS: No evidence of pulmonary fibrosis. No evidence of airspace consolidation, pneumothorax or pleu ral effusion. Mild emphysema changes are present. Nodules: RUL: Consolidation changes along the superior aspect of the right major fissure. Area measures ro ughly 35 x 15 mm on axial imaging has a more wedge-shaped appearance on sagittal imaging and extends away from the pulmonary hilum towards the major fissure. RML: None. RLL: None. BRIAN: None. LLL: None. AIRWAY: Patent and unremarkable. HEART: Size within normal limits. MEDIASTINUM: No gross evidence of adenopathy. Postsurgical changes near the gastroesophageal junction with surgical clips present. VASCULATURE: No aortic aneurysm. MUSCULOSKELETAL: No acute osseous abnormalities SOFT TISSUES/LYMPH NODES: Unremarkable. LOWER NECK: No significant findings. UPPER ABDOMEN: No significant findings. IMPRESSION: 1. Consolidation changes along the superior aspect of the right major fissure. Short-term follow-up in 3 months recommended to ensure resolution as it has appearance of atelectasis. Underlying mass not entirely excluded at this time. Findings are new from prior. 2. Mild emphysema changes. CT LUNG RAD AND CT CHEST RECOMMENDATION: Lung-Rad 4A Suspicious: Follow-up 3 month LDCT or PET/CT may be used when there is a > 8 mm solid component. S Modifier (other clinically significant findings): None Recommend smoking cessation (if current smoker), or continuation of smoking cessation (if prior smoke r). Annual screening for lung cancer with low-dose computed tomography is recommended in adults ages 55 to 77 years who have a 30 pack-year smoking history and currently smoke or have quit within the pa st 15 years. Screening should be discontinued once a person has not smoked for 15 years or develops a health problem that substantially limits life expectancy or the ability or willingness to have curat rosita lung surgery. Lung rads 2021 [email or web address]
== END | disposition home or self-care (01) ==
LOC: EEVIPCON 12:30 → RADCTMAIN 12:35
DX: Z87.891 Personal history of nicotine dependence (principal); Z12.2 Encounter for screening for malignant neoplasm of respiratory organs; J43.9 Emphysema, unspecified
CPT/HCPCS: 71271

== ENCOUNTER → 2023-06-25 | Outpatient (CLI) | payer OTHER ==
--- NOTE | 2023-06-25 13:55 | MM ---
Reason for Exam: Additional evaluation requested from abnormal screening. Last screening mammogram was performed less than 1 month ago. Patient History: Menarche at age 12. Patient has no children. Postmenopausal. Other cancer, age 31. Patient used Hormonal Contraceptives for 12 years. 09/14/2016, Benign Core Biopsy on the left side. Risk Values: Feli 5 year model risk: 1.4%. NCI Lifetime model risk: 9.9%. Tissue Density: Right: The breast tissue is heterogeneously dense. This may lower the sensitivity of mammography. Findings: Analyzed By CAD. No suspicious mass identified. No architectural distortion. The grouped calcifications within central right breast at posterior depth demonstrates round morphology and are benign. Overall Assessment: Benign, BI-RAD 2 Management: Screening Mammogram of both breasts in 1 year. A clinical breast exam by your physician is recommended on an annual basis and results should be correlated with mammographic findings. This exam should not preclude additional follow-up of suspicious palpable abnormalities. Results were given to the patient verbally at the time of exam. Note on Feli scores and lifetime risk: 1. A Feli score greater than 3% is considered moderate risk. If this is the case, consider specialist referral to assess eligibility for a risk reducing agent. If overall lifetime risk for the development of breast cancer is 20% or higher, the patient may qualify for future screening with alternating mammogram and breast MRI. Electronically signed and approved by: Lalo Cruz D.O.
== END | disposition home or self-care (01) ==
LOC: RADMAMWWP 13:30
DX: R92.333 Mammographic heterogeneous density, bilateral breasts (principal); Z78.0 Asymptomatic menopausal state
CPT/HCPCS: 77061; 77065

== ENCOUNTER → 2023-07-11 | Outpatient (CLI) | payer OTHER ==
[2023-07-11 16:34] LABS: BUN/Creat Ratio 14.27 Ratio (12.00-20.00); Blood Urea Nitrogen 15.7 mg/dL (9.0-27.0); Chloride 102 mmol/L (96-109); Chol/HDL Ratio 5.07 Ratio; Glucose 107 mg/dL (70-110); LDL Cholesterol,Calculated 160.3 mg/dL (0.0-131.0); Potassium 4.5 mmol/L (3.5-5.5); Sodium 139 mmol/L (135-145)
[2023-07-11 16:35] LABS: ALT 41 U/L (8-44); AST 31 U/L (13-35); Albumin 4.6 g/dL (3.8-4.9); Albumin/Globulin Ratio 1.59 Ratio (1.60-3.17); Alkaline Phosphatase 190 U/L (41-126); Calcium 10.1 mg/dL (8.7-10.3); Globulin 2.9 g/dL (1.6-3.3); Total Bilirubin 0.4 mg/dL (0.3-1.2); Total Protein 7.5 g/dL (6.2-8.2)
== END | disposition home or self-care (01) ==
LOC: LABWHC1 10:18
PROVIDERS: ATTEND Internal Medicine Interventional Cardiology
DX: L40.50 Arthropathic psoriasis, unspecified (principal); E78.2 Mixed hyperlipidemia; Z79.899 Other long term (current) drug therapy
CPT/HCPCS: 36415; 80053; 80061; 86480

== ENCOUNTER 2023-09-10 19:35 | Outpatient (CLI) | payer OTHER ==
--- NOTE | 2023-09-23 21:29 | P.PCN ---
Date of Procedure: 09/10/23 Operative Findings: Polysomnography report Date of services 09/10/2023 Pertinent history This is a 52-year-old female patient presented to me with symptoms of chronic hypersomnia and fatigue and the patient carries an Miami score of 16. The patient had loud snoring and she felt not refreshed even after sleeping a total of 10 hours and she was taking long naps during the day. She has Mallampati class IV with an overbite and the patient gained approximately 60 pounds over the past 5 years. She is known to have history of schizoaffective disorder, chronic anxiety/depression maintained on a combination of Geodon, Effexor and takes Ativan as needed. Patient also has history of psoriatic arthritis and chronic pain maintained on Cosentyx. Pertinent physical findings The patient's height is 5 feet and 4 inches, weight is 204 pounds and a body mass index of 35 Technical description The patient was studied using a standard complex polysomnography protocol that included recording of the 2 EKG, Central, occipital and frontal EEG, right and left outer canthus EOG, submental EMG, right and left anterior tibialis EMG, respiratory airflow by thermocouple and or pressure/flow transducer, respiratory efforts by abdominal and thoracic PVDF belts, oxygen saturation by cable oximetry. Position by observation synchronized the PSG. Equipment used: Xyo. Sleep architecture Total time in bed was 423.0 minutes. The total sleep time was 4 to 1.5 minutes. The significance was 94.9%. The latency to sleep onset was 30 minutes and the latest REM sleep was 179 minutes. The sleep architecture was characterized by 5.7% stage I, 70.2% stage II, 7.7% stage III, and 16.3% REM sleep. The wake after sleep onset time was 7.5 minutes. The total arousal index was 4.9 Sleep continuity summary The patient a total of 33 arousals with an index of 4.9. Respiratory arousal index was 0.9 Periodic limb movement activity The patient had a total of 46 periodic limb movement activity with an index of 6.9. There was only 1 periodic limb movement activity with arousals with an index of 0.1 Cardiac summary The average heart rate was 71, minimum heart rate was 65 and a maximum heart rate was 79 Respiratory analysis The respiratory analysis demonstrated a total of 178 obstructive events of which 0 were obstructive apneas, 1 was mixed apneas and 177 were obstructive hypopneas and the patient resulted into an AHI of 26.9. There was also 4 central events noted with a central apnea index of 0.6. The patient AHI was worse during REM sleep with an AHI of 66.9 during REM Oxygenation analysis The patient nocturnal oxygen desaturation with the lowest pulse ox during REM sleep being at 62%. The baseline pulse ox was 92% while awake. The patient spent approximately 37 minutes of the sleep time below pulse ox of 89% Assessment Symptomatic obstructive sleep apnea with an AHI of 26 worse during REM sleep. Noted the respiratory events were essentially in the form of obstructive hypopneas and they are worse during REM sleep associated with nocturnal oxygen desaturation Nocturnal oxygen desaturation with a minimum pulse ox of 62% during REM sleep Chronic hypersomnia with an Miami score of 16 Obesity with a BMI of 35 Chronic schizoaffective disorder Chronic anxiety/depression/bipolar disorder History of alcoholism History of psoriasis and psoriatic arthritis COPD Acid reflux with hiatal hernia Plan This patient's chronic hypersomnia could be partially related to obstructive sleep apnea. The patient demonstrated moderately severe disease with an AHI of 26 worse during REM sleep. I do suspect that the patient also has a component of drug-induced hypersomnia in addition to obstructive sleep apnea. To optimize her condition, the patient will be asked to come into the sleep center to undergo a CPAP titration and following that the patient is going to be off her CPAP therapy and will continue to follow. Encourage weight loss. Maintain sleep hygiene measures. Will continue to follow
== END 2023-09-11 05:35 | disposition home or self-care (01) ==
LOC: 3 N SLEEP 19:35
PROVIDERS: ATTEND Internal Medicine Critical Care Medicine
DX: G47.33 Obstructive sleep apnea (adult) (pediatric) (principal); G47.10 Hypersomnia, unspecified; G47.36 Sleep related hypoventilation in conditions classified elsewhere; E66.9 Obesity, unspecified; F25.9 Schizoaffective disorder, unspecified; F31.9 Bipolar disorder, unspecified; G47.52 REM sleep behavior disorder; F41.9 Anxiety disorder, unspecified; G89.29 Other chronic pain; J44.9 Chronic obstructive pulmonary disease, unspecified; K21.9 Gastro-esophageal reflux disease without esophagitis; F10.21 Alcohol dependence, in remission; K44.9 Diaphragmatic hernia without obstruction or gangrene; L40.50 Arthropathic psoriasis, unspecified; Z87.2 Personal history of diseases of the skin and subcutaneous tissue; Z68.35 Body mass index [BMI] 35.0-35.9, adult; Z88.5 Allergy status to narcotic agent; Z91.048 Other nonmedicinal substance allergy status; Z79.899 Other long term (current) drug therapy; Z87.891 Personal history of nicotine dependence
CPT/HCPCS: 95810

== ENCOUNTER → 2023-09-23 | Outpatient (CLI) | payer OTHER ==
--- NOTE | 2023-09-26 19:51 | CTL ---
EXAMINATION TYPE: CT Low Dose Lung DATE OF EXAM ORDERED: 09/23/2023 HISTORY: . Lung cancer screening CT DLP: 136.0 mGycm Automated exposure control for dose reduction was used. SCREENING VISIT: Subsequent COMPARISON: 06/17/2023 TECHNIQUE: Low dose computed tomography scan was performed through the chest at 1 mm thick sections a nd reconstructed images in the coronal plane at [address] DIAGNOSTIC QUALITY: Satisfactory FINDINGS: LUNG NODULES: None. LUNGS: COPD: Severity: None Fibrosis: Severity: None Lymph nodes: None Other findings: Previous suspected atelectasis adjacent to the major fissure right upper lung field h as resolved over the interval. RIGHT PLEURAL SPACE: Effusion: None Calcification: None Thickening: None Pneumothorax: None LEFT PLEURAL SPACE: Effusion: None Calcification: None Thickening: None Pneumothorax: None HEART: Heart Size: Normal Coronary calcification: Minimal Pericardial effusion: None OTHER FINDINGS: Upper abdomen: Small hiatal hernia is present. Bony thorax: Normal Supraclavicular region: Normal Other: None IMPRESSION: 1. No suspicious changes for primary or metastatic neoplasm. FOLLOW UP CT CHEST RECOMMENDATION: Negative screening CT chest CT LUNG RAD: Lung-Rad 1 Negative
== END | disposition home or self-care (01) ==
LOC: RADCTMAIN 12:28
DX: Z12.2 Encounter for screening for malignant neoplasm of respiratory organs (principal); Z87.891 Personal history of nicotine dependence
CPT/HCPCS: 71271

== ENCOUNTER → 2023-10-24 | Outpatient (CLI) | payer OTHER ==
[2023-10-24 18:55] LABS: ALT 125 U/L (8-44); AST 99 U/L (13-35); LDL Cholesterol,Calculated 73.5 mg/dL (0.0-131.0)
== END | disposition home or self-care (01) ==
LOC: LABWHC1 11:48
PROVIDERS: ATTEND Internal Medicine Interventional Cardiology
DX: E78.2 Mixed hyperlipidemia (principal)
CPT/HCPCS: 36415; 80061; 84450; 84460

== ENCOUNTER → 2023-12-27 | Outpatient (CLI) | payer OTHER ==
[2023-12-27 15:28] LABS: ALT 46 U/L (8-44); AST 30 U/L (13-35)
== END | disposition home or self-care (01) ==
LOC: LABWHC1 11:10
PROVIDERS: ATTEND Internal Medicine Interventional Cardiology
DX: E78.2 Mixed hyperlipidemia (principal)
CPT/HCPCS: 36415; 84450; 84460

== ENCOUNTER → 2024-02-18 | Outpatient (CLI) | payer OTHER ==
--- NOTE | 2024-02-18 12:08 | US ---
EXAMINATION TYPE: US liver DATE OF EXAM: 02/18/2024 COMPARISON: US 10/16/2019 CLINICAL INDICATION: Female, 53 years old with history of R94.5 ABNORMAL RESULTS OF LIVER FUNCTION ST UDIES; Elevated AST, ALT, hx of cholecystectomy. TECHNIQUE: Multiple sonographic images of the right upper quadrant are obtained. FINDINGS: EXAM MEASUREMENTS: Liver Length: 15.3 cm Gallbladder Wall: Surgically absent. CBD: 0.83 cm Right Kidney: 11.4 x 5.1 x 5.2 cm WASTE ELIMINATION NOTES: Exam is limited due to gas. Pancreas: Appears hyperechoic. Tail was obscured. Liver: Increased echogenicity, coarse echotexture. , No dilated ducts masses or cystic structures . Gallbladder: Surgically absent. Evidence for sonographic Hay's sign: No CBD: Appears wnl post-cholecystectomy Right Kidney: No hydronephrosis or masses seen IMPRESSION: Hepatic steatosis
== END | disposition home or self-care (01) ==
LOC: RADUSWWP 09:23
PROVIDERS: ATTEND Family Medicine
DX: K76.0 Fatty (change of) liver, not elsewhere classified (principal); R94.5 Abnormal results of liver function studies; Z90.49 Acquired absence of other specified parts of digestive tract
CPT/HCPCS: 76705

== ENCOUNTER → 2024-04-07 | Outpatient (CLI) | payer OTHER ==
[2024-04-07 15:22] LABS: Basophils # (A) 0.06 X 10*3/uL (0.00-0.10); Basophils % (A) 0.9 %; Eosinophils # (A) 0.29 X 10*3/uL (0.04-0.35); Eosinophils % (A) 4.4 %; HCT 39.9 % (37.2-46.3); HGB 13.2 g/dL (12.0-15.0); Lymphocytes # (A) 2.13 X 10*3/uL (0.90-5.00); Lymphocytes % (A) 32.1 %; MCH 29.1 pg (27.0-32.0); MCHC 33.1 g/dL (32.0-37.0); MCV 88.1 FL (80.0-97.0); Mean Platelet Volume 11.5 FL (9.5-12.2); Monocytes # (A) 0.43 X 10*3/uL (0.20-1.00); Monocytes % (A) 6.5 %; NRBC Per 100 WBC 0 X 10*3/uL (0.00-0.01); Neutrophils # (A) 3.69 X 10*3/uL (1.80-7.70); Neutrophils % (A) 55.6 %; Platelet Count 283 X 10*3/uL (140-440); RBC 4.53 X 10*6/uL (4.10-5.20); RDW 13.2 % (11.5-14.5); WBC 6.63 X 10*3/uL (4.50-10.00)
[2024-04-07 15:34] LABS: Erythrocyte Sedimentation Rate 14 mm/Hr (0-30)
[2024-04-07 19:51] LABS: % Iron Saturation 21.66 (12.00-45.00); ALT 67 U/L (8-44); AST 34 U/L (13-35); Albumin 4.4 g/dL (3.8-4.9); Albumin/Globulin Ratio 1.83 Ratio (1.60-3.17); Alkaline Phosphatase 185 U/L (41-126); Blood Urea Nitrogen 13.1 mg/dL (9.0-27.0); Calcium 9.6 mg/dL (8.7-10.3); Carbon Dioxide 24.7 mmol/L (21.6-31.8); Chloride 103 mmol/L (96-109); Chol/HDL Ratio 4.33 Ratio; Ferritin 15.9 ng/mL (10.0-291.0); Globulin 2.4 g/dL (1.6-3.3); Glucose 99 mg/dL (70-110); Iron 94 UG/DL (50-170); LDL Cholesterol,Calculated 112.5 mg/dL (0.0-131.0); Potassium 4.7 mmol/L (3.5-5.5); Sodium 141 mmol/L (135-145); Total Bilirubin <0.2 mg/dL (0.3-1.2); Total Iron Binding Capacity 434 UG/DL (228-460); Total Protein 6.8 g/dL (6.2-8.2)
[2024-04-07 21:17] LABS: Protein, Total 6.8 g/dL (6.2-8.2)
[2024-04-07 21:18] LABS: Ceruloplasmin 26.7 mg/dL (20.0-60.0)
[2024-04-09 09:00] LABS: Albumin 3.95 g/dL (3.80-4.90); Gamma Globulin 0.98 g/dL (0.70-1.50)
== END | disposition home or self-care (01) ==
LOC: LABWHC1 11:39
PROVIDERS: ATTEND Internal Medicine Interventional Cardiology
DX: L40.50 Arthropathic psoriasis, unspecified (principal); E78.2 Mixed hyperlipidemia; K76.0 Fatty (change of) liver, not elsewhere classified; R74.01 Elevation of levels of liver transaminase levels; Z79.899 Other long term (current) drug therapy
CPT/HCPCS: 36415; 80053; 80061; 82103; 82104; 82390; 82728; 83516; 83540; 83550; 84165; 85025; 85652; 86038; 86140

== ENCOUNTER → 2024-07-03 | Outpatient (CLI) | payer BC ==
--- NOTE | 2024-07-04 11:05 | BD ---
EXAMINATION TYPE: Axial Bone Density DATE OF EXAM: 07/03/2024 CLINICAL HISTORY: 53 years old Female. ICD-10 CODE: Z78.0 ASYMPTOMATIC MENOPAUSAL STA , Additional History: Height: 64 Weight: 221 FRAX RISK QUESTIONS: Family History (Parent hip fracture): no History of Fracture in Adulthood: no Secondary Osteoporosis: yes 5. Chronic liver disease: yes RISK FACTORS HISTORY OF: Surgery to Spine/Hip(right/left)/Wrist (right/left): no MEDICATIONS: Thyroid Medications: no Osteoporosis Medications: no EXAM MEASUREMENTS: Bone mineral densitometry was performed using the [employer] System. Bone mineral density as measured about the Lumbar spine is: ----- L1-L4(G/cm2): 1.291 T Score Values are as follows: ----- L1: 0.7 ----- L2: 1.5 ----- L3: 1.4 ----- L4: 0.0 ----- L1-L4: 0.9 Z Score Values are as follows: ----- L1: 0.4 ----- L2: 1.2 ----- L3: 1.1 ----- L4: -0.3 ----- L1-L4: 0.6 Bone mineral density baseline Bone mineral density about the R hip (g/cm2): 1.148 Bone mineral density about the L hip (g/cm2): 1.201 T Score values are as follows: -----R Neck: 0.5 -----L Neck: 0.5 -----R Total: 1.1 -----L Total: 1.5 Z Score values are as follows: -----R Neck: 0.8 -----L Neck: 0.8 -----R Total: 1.0 -----L Total: 1.4 Bone mineral density baseline FRAX%s: The graph provided illustrates a 4.4% chance for a major osteoporotic fx and a 0.0% chance fo r the hips probability for fx in 10 years time. IMPRESSION: Normal (Values between +1 and -1 indicate normal bone mass). Consider repeating this study in 5 year s or sooner if there is some new clinical indication. NOTE: T-SCORE=SD OF THE YOUNG ADULT MEAN. [facility], , 07/04/2024 11:03 AM
--- NOTE | 2024-07-07 17:58 | MM ---
Reason for Exam: Screening (asymptomatic). Last mammogram was performed 1 year(s) and 1 month(s) ago. Patient History: Menarche at age 12. Patient has no children. Postmenopausal. Patient used Hormonal Contraceptives for 12 years. 09/14/2016, Benign Core Biopsy on the left side. Risk Values: Feli 5 year model risk: 1.4%. NCI Lifetime model risk: 9.8%. Prior Study Comparison: 04/26/2022 Bilateral MG screening mammo w CAD, [facility]. 06/07/2023 Bilateral MG screening mammo w CAD, [facility]. 06/25/2023 Right MG 3D work up w/cad RT, [facility]. Tissue Density: The breasts are heterogeneously dense, which may obscure small masses. Findings: Analyzed By CAD. Bilateral areas of asymmetric density are unchanged. Microclip left breast from prior biopsy. There is no suspicious group of microcalcifications or new suspicious mass in either breast. Overall Assessment: Benign, BI-RAD 2 Management: Screening Mammogram of both breasts in 1 year. . Patient should continue monthly self-breast exams. A clinical breast exam by your physician is recommended on an annual basis. This exam should not preclude additional follow-up of suspicious palpable abnormalities. Note on Feli scores and lifetime risk: 1. A Feli score greater than 3% is considered moderate risk. If this is the case, consider specialist referral to assess eligibility for a risk reducing agent. 2. If overall lifetime risk for the development of breast cancer is 20% or higher, the patient may qualify for future screening with alternating mammogram and breast MRI. [facility], , 07/07/2024 5:54 PM. Electronically signed and approved by: Sam Tubbs M.D. Radiologist
== END | disposition home or self-care (01) ==
LOC: RADMAMWWP 15:06
PROVIDERS: ATTEND Family Medicine
DX: Z12.31 Encounter for screening mammogram for malignant neoplasm of breast (principal); Z78.0 Asymptomatic menopausal state; R92.333 Mammographic heterogeneous density, bilateral breasts
CPT/HCPCS: 77067; 77080

== ENCOUNTER → 2024-12-04 | Outpatient (CLI) | payer BC, MEDICARE ==
--- NOTE | 2024-12-04 14:29 | CTL ---
EXAMINATION TYPE: CT Low Dose Lung DATE OF EXAM: 12/04/2024 1:55 PM COMPARISON: 09/23/2023 CLINICAL INDICATION: Female, 53 years old with history of Z12.2 SCREENING Z87.891 FORMER SMOKER; Form er smoker., history of tobacco use. TECHNIQUE: Multiple axial non-contrast scans were obtained from approximately the lung apices through the upper abdomen. Coronal and sagittal reformatted images were obtained. Low dose technique was uti lized. MIP were created on a separate workstation and submitted for review. CT DLP: 89.5 mGycm, Automated exposure control for dose reduction was used. CT Contrast: Contrast used: None Oral contrast used: None FINDINGS: Lack of intravenous contrast and low dose technique limits the evaluation of the vascular and soft ti ssue structures. LUNGS: No evidence of pulmonary fibrosis. No evidence of focal consolidation, pneumothorax or pleural effusion. Centrilobular emphysema changes. Nodules: RUL: None. RML: None. RLL: None. BRIAN: None. LLL: None. AIRWAY: Patent and unremarkable. HEART: Size within normal limits. No significant coronary artery calcifications. MEDIASTINUM: No gross evidence of adenopathy. VASCULATURE: No aortic aneurysm. MUSCULOSKELETAL: No acute osseous abnormalities SOFT TISSUES/LYMPH NODES: Unremarkable. LOWER NECK: No significant findings. UPPER ABDOMEN: Diffuse low-attenuation to the liver parenchyma. IMPRESSION: 1. No clinically significant pulmonary nodules. 2. Mild emphysema. 3. Hepatic steatosis. CT LUNG RAD AND CT CHEST RECOMMENDATION: Lung-Rad 1 Negative: Continue annual screening with LDCT in 12 months. S Modifier (other clinically significant findings): None Recommend smoking cessation (if current smoker), or continuation of smoking cessation (if prior smoke r). Annual screening for lung cancer with low-dose computed tomography is recommended in adults ages 55 to 77 years who have a 30 pack-year smoking history and currently smoke or have quit within the pa st 15 years. Screening should be discontinued once a person has not smoked for 15 years or develops a health problem that substantially limits life expectancy or the ability or willingness to have curat rsoita lung surgery. Lung rads 2021 [email or web address] [facility], , 12/04/2024 2:27 PM
== END | disposition home or self-care (01) ==
LOC: RADCTMAIN 13:37
PROVIDERS: ATTEND Family Medicine
DX: Z12.2 Encounter for screening for malignant neoplasm of respiratory organs (principal); J43.2 Centrilobular emphysema; K76.0 Fatty (change of) liver, not elsewhere classified
CPT/HCPCS: 71271